=== PATIENT | male | born 1940 | race Hispanic/Latino ===

== ENCOUNTER 2017-02-12 06:14 | Day surgery (SDC) | payer MEDICARE ==
[2017-02-01 13:09] VITALS: BMI 35.9
[2017-02-12] MEDS ORDERED: Phenylephrine 10 mg/ml Inj ONE (06:36)
[2017-02-12] MEDS ORDERED: Iohexol 350mgl/ml 50 ML ONE (06:36)
[2017-02-12] MEDS ORDERED: Lidocaine 2% Inj (20ml) ONE (06:36)
[2017-02-12] MEDS ORDERED: Nitroglycerin 50mg in D5W 50 MG/250 ML BOTTLE IV ONE (06:37)
[2017-02-12] MEDS ORDERED: Iodixanol 320 MG/ML 200 ML BOTTLE IV ONE (06:37)
[2017-02-12] MEDS ORDERED: Iodixanol 320 MG/ML 100 ML BOTTLE IV ONE (06:37)
[2017-02-12 07:07] LABS: BASO # 0.04 K/mm3 (0.0-2.0); BASO % 0.7 % (0.0-3.0); EOS # 0.2 (0.0-0.7); EOS % 3.1 % (1.5-5.0); GRAN # 4.04 (1.4-6.5); GRAN % 66.1 % (50.0-68.0); HEMOGLOBIN 11.2 gm/dL (14.0-18.0); LYMPH # 1.2 (1.2-3.4); LYMPH % 19.8 % (22.0-35.0); MEAN CELL VOLUME 88.3 fL (80.0-105.0); MEAN CORPUSCULAR HEMOGLOBIN 28.4 pg (25.0-35.0); MEAN CORPUSCULAR HGB CONC 32.2 g/dl (31.0-37.0); MEAN PLATELET VOLUME 9.5 fl (7.0-11.0); MONO # 0.6 (0.1-0.6); MONO % 10.3 % (1.0-6.0); PLATELET COUNT 105 10^3/uL (120.0-450.0); RBC 3.94 10^6/uL (3.5-6.1); RED CELL DISTRIBUTION WIDTH 14.8 % (11.5-14.5); WHITE BLOOD COUNT 6.1 10^3/ul (4.5-11.0)
[2017-02-12] MEDS ORDERED: Midazolam 2 MG/2 ML VIAL ONE (07:15)
[2017-02-12 07:23] LABS: BLOOD UREA NITROGEN 25 mg/dL (7-21); CALCIUM 8.8 mg/dL (8.4-10.5); GFR AFRICAN-AMERICAN > 60; GFR NON-AFRICAN AMERICAN > 60; HDL CHOLESTEROL 36 mg/dL (29-60)
[2017-02-12 07:28] LABS: INR 1.03 (0.93-1.08); PARTIAL THROMBOPLASTIN TIME 25.2 Seconds (23.7-30.8); PROTHROMBIN TIME 11.1 Seconds (9.9-11.8)
[2017-02-12 07:33] LABS: LDL CHOLESTEROL 51 mg/dL (0-129)
[2017-02-12 09:13] VITALS: TEMP 97.5
[2017-02-12] MEDS ORDERED: Sodium Chloride 0.9% 1,000 ML IV SCH (09:15)
--- NOTE | 2017-02-12 09:37 | CARD ---
APPROVED REPORT EKG Measurement Heart [id number] <Conclusion> Siinus bradycardia Rate decreased c/w ECG 10/07/16
[2017-02-12 11:21] VITALS: RESP 16
[2017-02-12 12:45] VITALS: PULSE 55; O2SAT 98
[2017-02-12 15:05] VITALS: BP 159/61
--- NOTE | 2017-02-12 15:19 | CARD ---
APPROVED REPORT Procedure(s) performed: Left Heart Catheterization Abdomianl Aortogram and Run off upto mid thigh. HISTORY The patient is a 76 year-old male with a history of : most recent EF: 60%. (EF Method: RADIONUCLIDE), previous diagnostic cath, tobacco history() : The patient is a former smoker , previous PCI (The PCI date was 01/27/2011), hypertension , dyslipidemia , Hx of CAD, S/p PTCA RCA 01/27/2011 and PTCA of Cx and OM on 02/06/2011 was C/o Chest pain and OJEDA underwent stresstest Abnormal Apical and lateral ischemia so admitted for left Cath.. INDICATION The indication(s) include : positive stress test. CASE TECHNIQUE The patient was brought electively to the Cardiac Catheterization Laboratory in a fasting state and was prepped and draped in a sterile manner. The right femoral groin was infiltrated with 2% Lidocaine subcutaneous anesthesia. A 6 Fr x 11 cm Ya sheath was inserted into the right femoral artery without difficulty. Coronary angiography was performed using coronary diagnostic catheters. The left coronary system was accessed and visualized with a Diagnostic ,5 Fr JL 4 catheter. The right coronary system was accessed and visualized with a Diagnostic ,5 Fr JR 4 catheter. Left ventriculogram was performed in BRAVO projection. Closure device was deployed with a 6 Fr / 7 Fr MynxGrip without any complications. Vessel Analysis The patient's coronary anatomy is right dominant. The left main coronary artery is a medium size vessel with diffuse calcification noted throughout this vessel and without significant stenosis. The left main bifurcates to the left anterior descending and circumflex. The left anterior descending artery is a medium size vessel with diffuse calcification noted throughout this vessel and without significant stenosis. The first diagonal branch is a small size vessel with intimal irregularities and without significant stenosis. The second diagonal branch is a medium size vessel with diffuse calcification noted throughout this vessel and with significant stenosis. There is a 60-70% stenosis in the ostial segment. The circumflex artery is a medium size vessel with diffuse calcification noted throughout this vessel and without significant stenosis. patent stent in mid segment The first obtuse marginal branch is a medium size vessel with diffuse calcification noted throughout this vessel and without significant stenosis. The right coronary artery is a medium size vessel with diffuse calcification noted throughout this vessel and without significant stenosis. patent stent in mid segment The right posterior descending artery is a small size vessel with diffuse calcification noted throughout this vessel and without significant stenosis. Left Ventricle The left ventricle is normal in size with normal contractility. There was no cardiomyopathy. The left ventricular ejection fraction is estimated to be 60-65%. The left ventricular end diastolic pressure is 18-20 mmHg. There was no gradient across the aortic valve upon pullback. Dital Abdonial Aortogram and Run off upto mid Thigh.. No significant Flow limiting Stenosis noted in both SFA, upto middle of thigh only. Conclusion Non Obstructive CAD, Limited to D2 ostial 60-70% stenosis ( small vessel) Patent stent in RCA and Cx Preserved LV Fx. EF-60-65%. EDP-18-20 mmof Hg. Distal Aortogram with Run off upto thigh .. showed calcification in aorta and B/L SFA but no flow limiting stenosis upto middle of thigh.Patent stent in L SFA. Recommendations Smoking Cessation Cardiac Rehabilitation Referral Aggressive Medical TherapyCardiac Risk Reduction Program Weight Loss Reduction Program DIMA and PVR and if abnormal consider complete peripherasl angiogram with ALAN to assess trifurcation and distal vessel Run off. CC; Dr. Zavala.
== END 2017-02-12 14:50 | disposition home or self-care (01) ==
LOC: CATH 06:14
PROVIDERS: ATTEND Internal Medicine Cardiovascular Disease
DX: I25.10 Atherosclerotic heart disease of native coronary artery without angina pectoris (principal); E78.5 Hyperlipidemia, unspecified; I10 Essential (primary) hypertension; Z87.891 Personal history of nicotine dependence; Z95.5 Presence of coronary angioplasty implant and graft
CPT/HCPCS: 36415; 80048; 80061; 85025; 85610; 85730; 86850; 86900; 93005; 93458; 93567; 99152; C1760; C1769; C1887 ×2; C2629; J1644 ×2; J1940; J2250; J3010; J7040 ×2

== ENCOUNTER 2017-02-18 19:31 | Observation (INO) | payer MEDICARE, OTHER ==
[2017-02-18 19:32] VITALS: BMI 35.9
[2017-02-18] MEDS ORDERED: Sodium Chloride 0.9% 500 ML IV STA (19:55)
[2017-02-18 19:57] LABS: BASO # 0.02 K/mm3 (0.0-2.0); BASO % 0.2 % (0.0-3.0); EOS # 0.1 (0.0-0.7); GRAN # 8.95 (1.4-6.5); GRAN % 84.4 % (50.0-68.0); HEMOGLOBIN 11.4 gm/dL (14.0-18.0); LYMPH # 0.9 (1.2-3.4); MEAN CELL VOLUME 86.4 fL (80.0-105.0); MEAN CORPUSCULAR HEMOGLOBIN 28.2 pg (25.0-35.0); MEAN CORPUSCULAR HGB CONC 32.7 g/dl (31.0-37.0); MEAN PLATELET VOLUME 9.5 fl (7.0-11.0); MONO # 0.7 (0.1-0.6); MONO % 6.4 % (1.0-6.0); PLATELET COUNT 124 10^3/uL (120.0-450.0); RBC 4.04 10^6/uL (3.5-6.1); RED CELL DISTRIBUTION WIDTH 14.6 % (11.5-14.5); WHITE BLOOD COUNT 10.6 10^3/ul (4.5-11.0)
[2017-02-18 20:04] LABS: INR 1.05 (0.93-1.08); PARTIAL THROMBOPLASTIN TIME 26.5 Seconds (23.7-30.8); PROTHROMBIN TIME 11.3 Seconds (9.9-11.8)
[2017-02-18 20:06] LABS: ALB/GLOB RATIO 1.3 (1.1-1.8); ALT/SGPT 15 U/L (7-56); AST/SGOT 23 U/L (15-59); BLOOD UREA NITROGEN 34 mg/dL (7-21); GFR AFRICAN-AMERICAN 55; GFR NON-AFRICAN AMERICAN 45; MAGNESIUM 1.9 mg/dL (1.7-2.2)
[2017-02-18 20:18] LABS: TROPONIN I < 0.01 ng/mL
[2017-02-18 20:21] LABS: CK-MB 1.9 ng/mL (0.0-3.6)
[2017-02-18 20:46] LABS: PH,URINE 6.5 (4.7-8.0); URINE BILIRUBIN NEGATIVE (NEGATIVE); URINE BLOOD TRACE-LYSED (NEGATIVE); URINE GLUCOSE (UA) NEGATIVE (NEGATIVE); URINE LEUKOCYTE ESTERASE NEGATIVE Leu/uL (NEGATIVE); URINE NITRATE NEGATIVE (NEGATIVE); URINE PROTEIN NEGATIVE mg/dL (<30 mg/dL); URINE UROBILINOGEN 0.2 E.U./dL (<1 E.U./dL)
[2017-02-18 20:54] LABS: URINE APPEARANCE CLEAR (CLEAR); URINE COLOR YELLOW (YELLOW)
--- NOTE | 2017-02-18 21:09 | ED PDOC ---
Arrival/HPI - General Chief Complaint: Chest Pain Time Seen by Provider: 02/18/17 19:33 Historian: Patient - History of Present Illness Narrative History of Present Illness (Text): 02/18/17 19:40 Arthur Dong is a 76 year old male, whose past medical history includes Parkinson's disease and COPD, who presents to the Emergency department complaining of chest pain with some shortness of breath for 1 hour prior to arrival. Patient recently underwent a cardiac catheterization 6 days ago, which was normal. Patient denies any fever, chills, nausea, vomiting, diarrhea, urinary symptoms, back pain, neck pain, headache, dizziness, or any other complaints. PMD: Dr. Zavala Symptom Onset: Gradual Symptom Course: Unchanged Activities at Onset: Rest, Light Context: Home Past Medical History - Provider Review Nursing Documentation Reviewed: Yes - Infectious Disease Hx of Infectious Diseases: None - Tetanus Immunization Tetanus Immunization: Unknown - Cardiac Hx Cardiac Disorders: Yes Hx Hypertension: Yes - Pulmonary Hx Respiratory Disorders: Yes Hx Bronchitis: Yes Hx Chronic Obstructive Pulmonary Disease (COPD): Yes (Borderline COPD) - Neurological Hx Paralysis: No - HEENT Hx HEENT Disorder: No - Renal Hx Renal Disorder: No - Endocrine/Metabolic Hx Endocrine Disorders: No - Hematological/Oncological Hx Blood Transfusions: No - Integumentary Hx Dermatological Disorder: No - Musculoskeletal/Rheumatological Hx Musculoskeletal Disorders: Yes (BACK PAIN) - Gastrointestinal Hx Gastrointestinal Disorders: No - Genitourinary/Gynecological Hx Genitourinary Disorders: No Hx Hematuria: No Hx Incontinence: No Hx Prostate Problems: No Hx Sexually Transmitted Diseases: No - Psychiatric Hx Emotional Abuse: No Hx Physical Abuse: No Hx Substance Use: No - Past Surgical History Past Surgical History: No Previous - Surgical History Hx Cardiac Catheterization: Yes Hx Coronary Stent: Yes Other/Comment: 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 1970 S/P Left foot surgery. 2008 s/p Hernia repair. 2009 S/P Left leg stent. S/P Cardiac stent. - Anesthesia Hx Anesthesia Reactions: No Hx Malignant Hyperthermia: No - Suicidal Assessment Feels Threatened In Home Enviroment: No Family/Social History - Physician Review Nursing Documentation Reviewed: Yes Family/Social History: Unknown Family HX Smoking Status: Former Smoker Hx Alcohol Use: No Hx Substance Use: No Hx Substance Use Treatment: No Allergies/Home Meds Allergies/Adverse Reactions: Allergies No Known Allergies Allergy (Verified 02/18/17 19:41) Home Medications: Home Meds Medication Instructions Recorded Confirmed Levocetirizine Dihydrochloride 5 mg PO DAILY 10/07/16 02/18/17 [Xyzal] Simvastatin 40 mg PO DAILY 10/07/16 02/18/17 Losartan Potassium 100 mg PO QPM 02/01/17 02/18/17 Carbidopa/Levodopa 1 each PO QID 02/05/17 02/18/17 [Carbidopa-Levodopa 25-100 Tab] Fluticasone Propionate [Flonase 100 mcg VINAY DAILY 02/18/17 02/18/17 Allergy Relief] Review of Systems - Physician Review All systems were reviewed & negative as marked: Yes - Review of Systems Constitutional: Normal. absent: Fevers Eyes: Normal ENT: Normal Respiratory: SOB. absent: Cough Cardiovascular: Chest Pain Gastrointestinal: Normal. absent: Abdominal Pain, Diarrhea, Nausea, Vomiting Genitourinary Male: Normal. absent: Frequency, Hematuria, Urinary Output Changes Musculoskeletal: Normal. absent: Back Pain, Neck Pain Skin: Normal. absent: Rash Neurological: Normal. absent: Headache, Dizziness Endocrine: Normal Hemo/Lymphatic: Normal Psychiatric: Normal Physical Exam Vital Signs Reviewed: Yes Vital Signs Temp Pulse Resp BP Pulse Ox 02/19/17 00:23 79 16 142/94 H 100 02/18/17 22:38 97.7 F 85 18 141/65 100 02/18/17 21:45 81 18 144/66 97 02/18/17 20:40 85 18 130/51 L 99 02/18/17 20:15 87 18 120/62 98 02/18/17 19:39 97.7 F 97 H 18 98/51 L 95 Temperature: Afebrile Blood Pressure: Normal Pulse: Regular Respiratory Rate: Normal Appearance: Positive for: Well-Appearing, Non-Toxic, Comfortable Pain Distress: None Mental Status: Positive for: Alert and Oriented X 3 - Systems Exam Head: Present: Atraumatic, Normocephalic Pupils: Present: PERRL Extroacular Muscles: Present: EOMI Conjunctiva: Present: Normal Mouth: Present: Moist Mucous Membranes Neck: Present: Normal Range of Motion Respiratory/Chest: Present: Clear to Auscultation, Good Air Exchange. No: Respiratory Distress, Accessory Muscle Use Cardiovascular: Present: Regular Rate and Rhythm, Normal S1, S2. No: Murmurs Abdomen: Present: Normal Bowel Sounds. No: Tenderness, Distention, Peritoneal Signs Back: Present: Normal Inspection Upper Extremity: Present: Normal Inspection. No: Cyanosis, Edema Lower Extremity: Present: Normal Inspection. No: Edema Neurological: Present: GCS=15, CN II-XII Intact, Speech Normal Skin: Present: Warm, Dry, Normal Color. No: Rashes Psychiatric: Present: Alert, Oriented x 3, Normal Insight, Normal Concentration Medical Decision Making ED Course and Treatment: 02/18/17 19:40 Impression: 76 year old male complaining of chest pain with some shortness of breath. Differential Diagnosis included but are not limited to: pneumonia vs. COPD vs. ACS vs. PE Plan: -- EKG -- CXR -- Labs, cardiac enzymes, D-dimer -- IV fluids -- Reassess and disposition Prior Visits: Notes and results from previous visits were reviewed. On 10/07/2016, pt was seen in the Emergency department for generalized weakness , vomiting, and diarrhea. Pt was admitted to the hospital for further evaluation. Progress Notes: Reviewed EKG, NSR at [address]-segment elevations or depressions, no T-wave inversions, normal intervals. 02/18/17 20:49 Reviewed Chest X-ray, shows no acute processes. 02/18/17 20:54 Reviewed labs, D-dimer: 0.56, BUN:34, and creatinine: 1.5. VQ scan ordered. 02/19/17 23:[address] Head, shows: Brain: Mild atrophy. No intracranial hemorrhage. No mass. No definite edema. Ventricles: No hydrocephalus. Bones/joints: No acute fracture. Soft tissues: Unremarkable. Vasculature: Mild atherosclerotic disease of intracranial arteries. Sinuses: Scattered minimal mucosal thickening. Mastoid air cells: No mastoid effusion. Orbits: Unremarkable as visualized. IMPRESSION: 1. No definite acute intracranial abnormality. Acute infarction may be CT occult within first 24 hours. If a focal deficit persists, consider followup CT or MRI for further evaluation. 2. Incidental/non-acute findings are described above. 02/19/2017 23:[address] Zavala, who is aware and agrees with plan. Accepts pt in to her service. Pt will go to Telemetry observation for chest pain. VQ scan pending. Pt is no acute distress. Discussed results and hospital observation plan with pt , who is aware and verbalizes understanding. 02/19/17 00:37 Reviewed VQ Lung Perfusion, shows: Ventilation: Heterogeneous uptake. No moderate or large ventilation defects. Perfusion: No moderate or large perfusion defects. IMPRESSION: Low probability for pulmonary embolism. - Lab Interpretations Lab Results: 02/18/17 19:30 02/18/17 19:30 Lab Results 02/18/17 20:30: Urine Color Yellow, Urine Appearance Clear, Urine pH 6.5, Ur Specific [place] 1.010, Urine Protein Negative, Urine Glucose (UA) Negative, Urine Ketones Negative, Urine Blood Trace-lysed H, Urine Nitrate Negative, Urine Bilirubin Negative, Urine Urobilinogen 0.2, Ur Leukocyte Esterase Negative , Urine RBC 0 - 2, Urine WBC 1 - 3, Ur Epithelial Cells 1 - 3, Urine Bacteria Few 02/18/17 19:30: PT 11.3, INR 1.05, APTT 26.5 02/18/17 19:30: Sodium 136, Potassium 4.7, Chloride 100, Carbon Dioxide 24, Anion Gap 17, BUN 34 H, Creatinine 1.5 H, Est GFR ( Amer) 55, Est GFR ( Non-Af Amer) 45, Random Glucose 208 H, Calcium 9.0, Magnesium 1.9, Total Bilirubin 0.7, AST 23, ALT 15, Alkaline Phosphatase 75, Lactate Dehydrogenase 462, Total Creatine Kinase 354 H, CK-MB (CK-2) 1.9, CK-MB (CK-2) % Cancelled, Troponin I < 0.01, Total Protein 7.1, Albumin 4.0, Globulin 3.0, Albumin/ Globulin Ratio 1.3 02/18/17 19:30: WBC 10.6 D, RBC 4.04, Hgb 11.4 L, Hct 34.9 L, MCV 86.4, MCH 28.2, MCHC 32.7, RDW 14.6 H, Plt Count 124, MPV 9.5, Gran % 84.4 H, Lymph % ( Auto) 8.0 L, [place] % (Auto) 6.4 H, Eos % (Auto) 1.0 L, Baso % (Auto) 0.2, Gran # 8.95 H, Lymph # 0.9 L, [place] # 0.7 H, Eos # 0.1, Baso # 0.02 02/18/17 19:00: D-Dimer, Quantitative 0.56 H I have reviewed the lab results: Yes - RAD Interpretation Radiology Orders: 02/18/17 19:41 CHEST PORTABLE [RAD] Stat 02/18/17 20:54 LUNG PERF & VENT SCAN [NM] Stat 02/18/17 21:37 HEAD W/O CONTRAST [CT] Stat Pole Shaver Helper: ED Physician, Radiologist - EKG Interpretation Interpreted by ED Physician: Yes Comparison: Com.w/previous EKG - Medication Orders Current Medication Orders: Acetaminophen (Tylenol 325mg Tab) 650 mg PO Q4H PRN PRN Reason: Pain, Mild (1-3) Alprazolam (Xanax) 0.25 mg PO BID PRN; Protocol PRN Reason: Anxiety Stop: 02/26/17 09:17 Aspirin (Ecotrin) 81 mg PO DAILY [facility] Last Admin: 02/19/17 10:47 Dose: 81 mg Atorvastatin Calcium (Lipitor) 20 mg PO DIN [facility] Last Admin: 02/19/17 18:36 Dose: 20 mg Carbidopa/Levodopa (Sinemet) 1 tab PO QID [facility] Last Admin: 02/19/17 21:51 Dose: 1 tab Clopidogrel Bisulfate (Plavix) 75 mg PO DAILY [facility] Last Admin: 02/19/17 10:47 Dose: 75 mg Furosemide (Lasix) 40 mg PO DAILY [facility] Last Admin: 02/19/17 10:47 Dose: 40 mg Sodium Chloride (Sodium Chloride 0.9%) 1,000 mls @ 30 mls/hr IV .Q24H [facility] Last Admin: 02/19/17 15:48 Dose: 30 mls/hr Losartan Potassium (Cozaar) 100 mg PO QPM [facility] Last Admin: 02/19/17 18:34 Dose: 100 mg Metoprolol Tartrate (Lopressor) 25 mg PO BID [facility] Last Admin: 02/19/17 18:34 Dose: 25 mg Discontinued Medications Sodium Chloride (Sodium Chloride 0.9%) 500 mls @ 999 mls/hr IV .Q31M STA Stop: 02/18/17 20:25 Last Admin: 02/18/17 20:11 Dose: 999 mls/hr Sodium Chloride (Sodium Chloride 0.9%) 1,000 mls @ 75 mls/hr IV .[id number] [facility] Stop: 02/19/17 23:59 Last Admin: 02/19/17 18:40 Dose: 75 mls/hr Non-Formulary Medication (Simvastatin [Simvastatin]) 40 mg PO DAILY [facility] - Scribe Statement The provider has reviewed the documentation as recorded by the Jaclynibe Susan Watt All medical record entries made by the Jaclynibcelso were at my direction and personally dictated by me. I have reviewed the chart and agree that the record accurately reflects my personal performance of the history, physical exam, medical decision making, and the department course for this patient. I have also personally directed, reviewed, and agree with the discharge instructions and disposition. Disposition/Present on Arrival - Present on Arrival Any Indicators Present on Arrival: No History of DVT/PE: No History of Uncontrolled Diabetes: No Urinary Catheter: No History of Decub. Ulcer: No History Surgical Site Infection Following: None - Disposition Have Diagnosis and Disposition been Completed?: Yes Diagnosis: Chest pain Disposition: HOSPITALIZED Disposition Time: 23:35 Patient Problems: Current Active Problems Problem Status Onset Chest pain Acute Condition: GOOD
[2017-02-18 21:22] LABS: URINE BACTERIA FEW (NEG); URINE RBC 0 - 2 /hpf (0-2)
--- NOTE | 2017-02-18 23:03 | CT ---
EXAM: CT Head Without Intravenous Contrast CLINICAL HISTORY: 76 years old, male; Signs and symptoms; Numbness / parasthesia; Bilateral TECHNIQUE: Axial computed tomography images of the head/brain without intravenous contrast. This CT exam was performed using one or more of the following dose reduction techniques: automated exposure control, adjustment of the mA and/or kV according to patient size, and/or use of iterative reconstruction technique. COMPARISON: CT - HEAD W/O CONTRAST 10/07/2016 10:44:17 AM FINDINGS: Brain: Mild atrophy. No intracranial hemorrhage. No mass. No definite edema. Ventricles: No hydrocephalus. Bones/joints: No acute fracture. Soft tissues: Unremarkable. Vasculature: Mild atherosclerotic disease of intracranial arteries. Sinuses: Scattered minimal mucosal thickening. Mastoid air cells: No mastoid effusion. Orbits: Unremarkable as visualized. IMPRESSION: 1. No definite acute intracranial abnormality. Acute infarction may be CT occult within first 24 hours. If a focal deficit persists, consider followup CT or MRI for further evaluation. 2. Incidental/non-acute findings are described above.
--- NOTE | 2017-02-19 00:38 | NM ---
EXAM: NM Lung Perfusion and Ventilation Scan CLINICAL HISTORY: 76 years old, male; Pain; Chest pain; Type not specified; Patient HX: Cp. TECHNIQUE: Nuclear Medicine ventilation and perfusion images of the lungs were obtained in multiple projections following radiopharmaceutical inhalation/injection. COMPARISON: No relevant prior studies available. FINDINGS: Ventilation: Heterogeneous uptake. No moderate or large ventilation defects. Perfusion: No moderate or large perfusion defects. IMPRESSION: Low probability for pulmonary embolism.
--- NOTE | 2017-02-19 08:15 | RAD ---
HISTORY: cp COMPARISON: Comparison chest 10/07/16 FINDINGS: LUNGS: Poor inspiration with low lung volumes, crowded bronchovascular markings and mild bibasilar atelectasis. PLEURA: No significant pleural effusion identified, no pneumothorax apparent. CARDIOVASCULAR: Cardiomegaly . . Aorta is ectatic and uncoiled. OSSEOUS STRUCTURES: No significant abnormalities. VISUALIZED UPPER ABDOMEN: Normal. OTHER FINDINGS: None. IMPRESSION: Poor inspiration with low lung volumes, crowded bronchovascular markings and mild bibasilar atelectasis.
[2017-02-19 09:23] LABS: HEMOGLOBIN 11.6 gm/dL (14.0-18.0); MEAN CELL VOLUME 86.8 fL (80.0-105.0); MEAN CORPUSCULAR HEMOGLOBIN 28.4 pg (25.0-35.0); MEAN CORPUSCULAR HGB CONC 32.8 g/dl (31.0-37.0); MEAN PLATELET VOLUME 9.3 fl (7.0-11.0); RBC 4.08 10^6/uL (3.5-6.1); RED CELL DISTRIBUTION WIDTH 14.4 % (11.5-14.5); WHITE BLOOD COUNT 7.6 10^3/ul (4.5-11.0)
[2017-02-19 09:38] LABS: ALB/GLOB RATIO 1.2 (1.1-1.8); ALBUMIN 3.8 g/dL (3.0-4.8); ALT/SGPT 21 U/L (7-56); AST/SGOT 18 U/L (15-59); BLOOD UREA NITROGEN 27 mg/dL (7-21); CALCIUM 8.8 mg/dL (8.4-10.5); GFR AFRICAN-AMERICAN > 60; GFR NON-AFRICAN AMERICAN > 60; MAGNESIUM 2.1 mg/dL (1.7-2.2)
[2017-02-19 09:51] LABS: TROPONIN I 0.01 ng/mL
--- NOTE | 2017-02-19 10:01 | CARD ---
APPROVED REPORT EKG Measurement Heart [id number] <Conclusion> Normal sinus rhythm Normal ECG C/W ECG 02/12/17: the rate has increased
[2017-02-19] MEDS ORDERED: Sodium Chloride 0.9% 1,000 ML IV SCH ×2 (15:00→16:00)
--- NOTE | 2017-02-19 15:57 | CP.PCM.CON ---
History of Present Illness - History of Present Illness History of Present Illness: reason for consult: chest pain, Dizyness &6 year old male with p Mhx of CAD S/p PTCA 01/2011 RCA and then stage PTCA of Cx after two weeks , HTN, PAD, parkinson's diz. Hx of cath one week agog non obst CAD admitted with knot in chest and dizzyness and SOB. no chest pain now. PMHx CAD as above recent Cardiac W/u cath on 02/12/2017 .... Non Obst Cad medical treatment. Review of Systems - EENT Eyes: As Per HPI Ears: As Per HPI Nose/Mouth/Throat: As Per HPI - Cardiovascular Cardiovascular: As Per HPI - Respiratory Respiratory: As Per HPI - Gastrointestinal Gastrointestinal: As Per HPI Past Patient History - Infectious Disease Hx of Infectious Diseases: None - Tetanus Immunizations Tetanus Immunization: Unknown - Past Social History Smoking Status: Former Smoker - CARDIAC Hx Cardiac Disorders: Yes Hx Hypercholesterolemia: Yes Hx Hypertension: Yes Hx Peripheral Edema: Yes Hx Peripheral Vascular Disease: Yes - PULMONARY Hx Respiratory Disorders: Yes Hx Bronchitis: Yes Hx Chronic Obstructive Pulmonary Disease (COPD): Yes (borderline) Hx Pneumonia: Yes - NEUROLOGICAL Hx Dizziness: Yes Hx Parkinson's Disease: Yes - HEENT Hx HEENT Problems: No - RENAL Hx Chronic Kidney Disease: No - ENDOCRINE/METABOLIC Hx Endocrine Disorders: No - HEMATOLOGICAL/ONCOLOGICAL Hx Blood Transfusions: No - INTEGUMENTARY Hx Dermatological Problems: No - MUSCULOSKELETAL/RHEUMATOLOGICAL Hx Back Pain: Yes Hx Falls: Yes Hx Unsteady Gait: Yes - GASTROINTESTINAL Hx Gastrointestinal Disorders: No - GENITOURINARY/GYNECOLOGICAL Hx Genitourinary Disorders: No Hx Hematuria: No Hx Incontinence: No Hx Prostate Problems: No Hx Sexually Transmitted Disorders: No - PSYCHIATRIC Hx Anxiety: Yes Hx Depression: Yes Hx Substance Use: No - SURGICAL HISTORY Hx Amputation: Yes (finger tip) Hx Cardiac Catheterization: Yes Hx Coronary Stent: Yes - ANESTHESIA Hx Anesthesia Reactions: No Hx Malignant Hyperthermia: No Meds Allergies/Adverse Reactions: Allergies Allergy/AdvReac Type Severity Reaction Status Date / Time No Known Allergies Allergy Verified 02/18/17 19:41 - Medications Medications: Current Medications Acetaminophen (Tylenol 325mg Tab) 650 mg PO Q4H PRN PRN Reason: Pain, Mild (1-3) Alprazolam (Xanax) 0.25 mg PO BID PRN; Protocol PRN Reason: Anxiety Stop: 02/26/17 09:17 Aspirin (Ecotrin) 81 mg PO DAILY [facility] Last Admin: 02/19/17 10:47 Dose: 81 mg Atorvastatin Calcium (Lipitor) 20 mg PO DIN [facility] Carbidopa/Levodopa (Sinemet) 1 tab PO QID [facility] Last Admin: 02/19/17 10:47 Dose: 1 tab Clopidogrel Bisulfate (Plavix) 75 mg PO DAILY [facility] Last Admin: 02/19/17 10:47 Dose: 75 mg Furosemide (Lasix) 40 mg PO DAILY [facility] Last Admin: 02/19/17 10:47 Dose: 40 mg Sodium Chloride (Sodium Chloride 0.9%) 1,000 mls @ 30 mls/hr IV .Q24H [facility] Losartan Potassium (Cozaar) 100 mg PO QPM [facility] Metoprolol Tartrate (Lopressor) 25 mg PO BID [facility] Last Admin: 02/19/17 10:46 Dose: 25 mg Physical Exam - Constitutional Appears: Non-toxic - Head Exam Head Exam: ATRAUMATIC - Eye Exam Eye Exam: Conjunctival injection - ENT Exam ENT Exam: Mucous Membranes Dry - Neck Exam Neck exam: Positive for: Full Rom - Respiratory Exam Respiratory Exam: Clear to Auscultation Bilateral, NORMAL BREATHING PATTERN - Cardiovascular Exam Cardiovascular Exam: REGULAR RHYTHM - GI/Abdominal Exam GI & Abdominal Exam: Normal Bowel Sounds, Soft - Rectal Exam Rectal Exam: Deferred - Exam External exam: NORMAL EXTERNAL EXAM Results - Vital Signs Recent Vital Signs: Last Vital Signs Temp 98 F 02/19/17 12:00 Pulse 62 02/19/17 14:00 Resp 18 02/19/17 12:00 BP 94/57 L 02/19/17 12:00 Pulse Ox 92 L 02/19/17 06:00 - Labs Result Diagrams: 02/19/17 09:10 02/19/17 09:10 Labs: Laboratory Results - last 24 hr 02/19/17 02/19/17 02/19/17 09:10 09:10 09:10 WBC 7.6 D RBC 4.08 Hgb 11.6 L Hct 35.4 L MCV 86.8 MCH 28.4 MCHC 32.8 RDW 14.4 Plt Count 110 L MPV 9.3 ESR 45 H Sodium 139 Potassium 4.6 Chloride 104 Carbon Dioxide 26 Anion Gap 14 BUN 27 H Creatinine 1.0 Est GFR ( Amer) > 60 Est GFR (Non-Af Amer) > 60 Random Glucose 153 H Calcium 8.8 Magnesium 2.1 Total Bilirubin 0.7 AST 18 ALT 21 Alkaline Phosphatase 82 Troponin I 0.01 Total Protein 7.0 Albumin 3.8 Globulin 3.2 Albumin/Globulin Ratio 1.2 TSH 3rd Generation 2.09 Assessment & Plan - Assessment and Plan (Free Text) Assessment: 76 year old male with HX of CopD. parkinsons DiHx of CAD S/p PTCA RCA 2010 and stage PTCA 02/06/2011 Recent abnormal stress test positive s/p cath ...02/12/2017 ...Non Obst CAD COPD' HTN, PAD B/l angiogram upto middle thigh no significant PAD Admittec with SOB, Knot in chest and dizzyness So far no evidence of [place] Plan: F/u CPK am troponin ..if negative will Dc tele check for orthosatic bp Changes Dc planning - Date & Time Date: 02/19/17 Time: 08:30
[2017-02-20 07:46] LABS: HDL CHOLESTEROL 43 mg/dL (29-60); LDL CHOLESTEROL 59 mg/dL (0-129)
[2017-02-20 08:15] VITALS: RESP 20; TEMP 97.9; O2SAT 97
[2017-02-20 09:27] LABS: HEMOGLOBIN 12.4 gm/dL (14.0-18.0); MEAN CELL VOLUME 87.6 fL (80.0-105.0); MEAN CORPUSCULAR HEMOGLOBIN 28.9 pg (25.0-35.0); MEAN PLATELET VOLUME 9.8 fl (7.0-11.0); RBC 4.29 10^6/uL (3.5-6.1); RED CELL DISTRIBUTION WIDTH 14.6 % (11.5-14.5); WHITE BLOOD COUNT 7.4 10^3/ul (4.5-11.0)
[2017-02-20 09:30] LABS: BLOOD UREA NITROGEN 27 mg/dL (7-21); CALCIUM 9.3 mg/dL (8.4-10.5); GFR AFRICAN-AMERICAN > 60; GFR NON-AFRICAN AMERICAN > 60
[2017-02-20 09:53] VITALS: BP 106/58; PULSE 67
--- NOTE | 2017-02-20 11:38 | CP.PCM.PN ---
Subjective - Date & Time of Evaluation Date of Evaluation: 02/20/17 Time of Evaluation: 09:45 - Subjective Subjective: feels much better no Chest pain, dizzyness improved. walking by holding IV Post Objective - Vital Signs/Intake and Output Vital Signs (last 24 hours): Temp Pulse Resp BP Pulse Ox 97.9 F 67 20 106/58 L 97 02/20/17 07:30 02/20/17 09:49 02/20/17 07:30 02/20/17 09:49 02/20/17 07:30 Intake and Output: 02/20/17 02/20/17 06:59 18:59 Intake Total 420 Balance 420 - Medications Medications: Current Medications Acetaminophen (Tylenol 325mg Tab) 650 mg PO Q4H PRN PRN Reason: Pain, Mild (1-3) Alprazolam (Xanax) 0.25 mg PO BID PRN; Protocol PRN Reason: Anxiety Stop: 02/26/17 09:17 Aspirin (Ecotrin) 81 mg PO DAILY [facility] Last Admin: 02/20/17 09:49 Dose: 81 mg Atorvastatin Calcium (Lipitor) 20 mg PO DIN [facility] Last Admin: 02/19/17 18:36 Dose: 20 mg Carbidopa/Levodopa (Sinemet) 1 tab PO QID [facility] Last Admin: 02/20/17 09:48 Dose: 1 tab Clopidogrel Bisulfate (Plavix) 75 mg PO DAILY [facility] Last Admin: 02/20/17 09:49 Dose: 75 mg Furosemide (Lasix) 40 mg PO DAILY [facility] Last Admin: 02/20/17 09:48 Dose: 40 mg Sodium Chloride (Sodium Chloride 0.9%) 1,000 mls @ 30 mls/hr IV .Q24H [facility] Last Admin: 02/19/17 15:48 Dose: 30 mls/hr Losartan Potassium (Cozaar) 100 mg PO QPM [facility] Last Admin: 02/19/17 18:34 Dose: 100 mg Metoprolol Tartrate (Lopressor) 25 mg PO BID [facility] Last Admin: 02/20/17 09:49 Dose: 25 mg - Labs Labs: 02/20/17 06:00 02/20/17 06:00 PT 11.3 Seconds (9.9-11.8) 02/18/17 19:30 INR 1.05 (0.93-1.08) 02/18/17 19:30 APTT 26.5 Seconds (23.7-30.8) 02/18/17 19:30 - Constitutional Appears: Well, Non-toxic - Head Exam Head Exam: ATRAUMATIC - Eye Exam Eye Exam: Conjunctival injection - ENT Exam ENT Exam: Mucous Membranes Dry, Normal Exam - Respiratory Exam Respiratory Exam: Clear to Ausculation Bilateral - Cardiovascular Exam Cardiovascular Exam: REGULAR RHYTHM - GI/Abdominal Exam GI & Abdominal Exam: Soft - Exam External exam: NORMAL EXTERNAL EXAM Assessment and Plan - Assessment and Plan (Free Text) Assessment: dizzyness, /dehydration chest apin, no evidence of ACS Hx of CAD S/p PTCA in past Hx of cath one week ago [patent PTCA sites PADF COPD parkinson's diz Plan: Hydration reume meds possible dc in Am. f/u Lab in am
== END 2017-02-20 15:35 | disposition home or self-care (01) ==
LOC: ED 19:31 → ERH 02-19 01:13 → 2RNO 02-19 02:45 → 5RNO 02-19 21:29
PROVIDERS: ADMIT Internal Medicine; ATTEND Internal Medicine
DX: R07.9 Chest pain, unspecified (principal); R42 Dizziness and giddiness; E86.0 Dehydration; J44.9 Chronic obstructive pulmonary disease, unspecified; G20 Parkinson's disease; E78.00 Pure hypercholesterolemia, unspecified; I25.10 Atherosclerotic heart disease of native coronary artery without angina pectoris; I73.9 Peripheral vascular disease, unspecified; I10 Essential (primary) hypertension; Z87.01 Personal history of pneumonia (recurrent); Z95.5 Presence of coronary angioplasty implant and graft
CPT/HCPCS: 36415; 70450; 71010; 78582; 80048; 80053; 80061; 81001; 82550; 82553; 83036; 83615; 83735; 84443; 84484; 85025; 85027; 85378; 85610; 85651; 85730; 86140; 87070; 93005; 96360; 99285; A9540; G0378; J7040

== ENCOUNTER 2017-04-05 22:28 | Observation (INO) | payer MEDICARE, MEDICAID ==
[2017-04-05 22:29] VITALS: BMI 35.9
[2017-04-05 22:48] VITALS: O2SAT 97
--- NOTE | 2017-04-05 23:26 | ED PDOC ---
Arrival/HPI - General Time Seen by Provider: 04/05/17 22:50 Historian: Patient - History of Present Illness Narrative History of Present Illness (Text): 04/05/17 23:23 76 year old male, whose past medical history includes hypertension, CAD s/p PTCA , COPD, and Parkinson's disease, presents to the emergency department by EMS complaining of dizziness. Patient was hypotensive on arrival by EMS. Patient states that he was at home laying in bed and when he got up he became dizzy and fell down. He reports that he landed on his hands and did not have LOC. Denies head trauma. He reports that he felt "chills" all day. He denies chest pain, shortness of breath, nausea, vomiting, diarrhea, urinary symptoms, back pain, neck pain, headache. PMD: Dr. Zavala Time/Duration: Prior to Arrival Symptom Onset: Sudden Symptom Course: Unchanged Activities at Onset: Light Context: Home Past Medical History - Provider Review Nursing Documentation Reviewed: Yes - Infectious Disease Hx of Infectious Diseases: None - Tetanus Immunization Tetanus Immunization: Unknown - Cardiac Hx Cardiac Disorders: Yes Hx Hypertension: Yes - Pulmonary Hx Respiratory Disorders: Yes Hx Bronchitis: Yes Hx Chronic Obstructive Pulmonary Disease (COPD): Yes (Borderline COPD) - Neurological Hx Paralysis: No - HEENT Hx HEENT Disorder: No - Renal Hx Renal Disorder: No - Endocrine/Metabolic Hx Endocrine Disorders: No - Hematological/Oncological Hx Blood Transfusions: No - Integumentary Hx Dermatological Disorder: No - Musculoskeletal/Rheumatological Hx Musculoskeletal Disorders: Yes (BACK PAIN) - Gastrointestinal Hx Gastrointestinal Disorders: No - Genitourinary/Gynecological Hx Genitourinary Disorders: No Hx Hematuria: No Hx Incontinence: No Hx Prostate Problems: No Hx Sexually Transmitted Diseases: No - Psychiatric Hx Emotional Abuse: No Hx Physical Abuse: No Hx Substance Use: No - Past Surgical History Past Surgical History: No Previous - Surgical History Hx Cardiac Catheterization: Yes Hx Coronary Stent: Yes Other/Comment: 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 1969 S/P Left foot surgery. 2008 s/p Hernia repair. 2008 S/P Left leg stent. S/P Cardiac stent. - Anesthesia Hx Anesthesia Reactions: No Hx Malignant Hyperthermia: No - Suicidal Assessment Feels Threatened In Home Enviroment: No Family/Social History - Physician Review Nursing Documentation Reviewed: Yes Family/Social History: No Known Family HX Smoking Status: Former Smoker Hx Alcohol Use: No Hx Substance Use: No Hx Substance Use Treatment: No Allergies/Home Meds Allergies/Adverse Reactions: Allergies No Known Allergies Allergy (Verified 02/18/17 19:41) Home Medications: Home Meds Medication Instructions Recorded Confirmed Levocetirizine Dihydrochloride 5 mg PO DAILY 10/07/16 02/18/17 [Xyzal] Simvastatin 40 mg PO DAILY 10/07/16 02/18/17 Losartan Potassium 100 mg PO QPM 02/01/17 02/18/17 Carbidopa/Levodopa 1 each PO QID 02/05/17 02/18/17 [Carbidopa-Levodopa 25-100 Tab] Fluticasone Propionate [Flonase 100 mcg VINAY DAILY 02/18/17 02/18/17 Allergy Relief] Review of Systems - Physician Review All systems were reviewed & negative as marked: Yes - Review of Systems Constitutional: Fevers (subjective and chills), Other (near syncope) Eyes: absent: Vision Changes Respiratory: absent: SOB, Cough Cardiovascular: absent: Chest Pain, Palpitations, Edema Gastrointestinal: absent: Abdominal Pain, Constipation, Diarrhea, Nausea, Vomiting Genitourinary Male: absent: Dysuria, Frequency, Hematuria Musculoskeletal: absent: Back Pain, Neck Pain Neurological: Dizziness. absent: Headache, Other (Loss of consciousness) Physical Exam Vital Signs Reviewed: Yes Vital Signs Temp Pulse Resp BP Pulse Ox 04/05/17 22:48 99 F 58 L 20 124/60 97 Temperature: Afebrile Blood Pressure: Normal Pulse: Regular Respiratory Rate: Normal Appearance: Positive for: Well-Appearing Pain Distress: None Mental Status: Positive for: Alert and Oriented X 3 - Systems Exam Head: Present: Atraumatic, Normocephalic Pupils: Present: PERRL Extroacular Muscles: Present: EOMI Conjunctiva: Present: Normal Mouth: Present: Moist Mucous Membranes Neck: Present: Normal Range of Motion Respiratory/Chest: Present: Clear to Auscultation, Good Air Exchange. No: Respiratory Distress, Accessory Muscle Use Cardiovascular: Present: Regular Rate and Rhythm, Normal S1, S2. No: Murmurs Abdomen: Present: Normal Bowel Sounds. No: Tenderness, Distention, Peritoneal Signs Upper Extremity: Present: Normal Inspection. No: Cyanosis, Edema Lower Extremity: Present: Normal Inspection. No: Edema Neurological: Present: GCS=15, CN II-XII Intact, Speech Normal, Motor Func Grossly Intact, Normal Sensory Function Skin: Present: Warm, Dry, Normal Color. No: Rashes Psychiatric: Present: Alert, Oriented x 3, Normal Insight, Normal Concentration Medical Decision Making ED Course and Treatment: 04/05/17 23:23 Impression: 76 year old male presents complaining of dizziness that began today and episode of near syncope. Plan: -- EKG -- Labs -- Urinalysis -- Reassess and disposition Prior Visits: Notes and results from previous visits were reviewed. On 02/18/2017 patient came in complaining of chest pain with shortness of breathe. Progress Notes: EKG shows NSR at 67 BPM with normal intervals and no ST/T changes. 04/06/17 00:07 Labs grossly normal. Trop x 1 negative. Patient reports persistent dizziness when ambulating. IVF infusing. Spoke to Dr. Felix and [facility] hydration for dehydration. - Lab Interpretations Lab Results: 04/05/17 23:25 04/05/17 23:25 Lab Results 04/05/17 23:25: Sodium 140, Potassium 4.2, Chloride 105, Carbon Dioxide 24, Anion Gap 15, BUN 29 H, Creatinine 1.1, Est GFR ( Amer) > 60, Est GFR ( Non-Af Amer) > 60, Random Glucose 118 H, Calcium 8.7, Phosphorus 3.8, Magnesium 1.9, Total Bilirubin 0.3, AST 18, ALT 23, Alkaline Phosphatase 84, Total Creatine Kinase 73, Troponin I < 0.01, Total Protein 6.9, Albumin 4.0, Globulin 2.8, Albumin/Globulin Ratio 1.4 04/05/17 23:25: PT 11.3, INR 1.05, APTT 25.9 04/05/17 23:25: WBC 9.1 D, RBC 3.87, Hgb 11.2 L, Hct 33.6 L, MCV 86.8, MCH 28.9 , MCHC 33.3, RDW 15.3 H, Plt Count 127, MPV 9.7, Gran % 72.8 H, Lymph % (Auto) 14.1 L, [place] % (Auto) 10.4 H, Eos % (Auto) 2.5, Baso % (Auto) 0.2, Gran # 6.64 H , Lymph # 1.3, [place] # 1.0 H, Eos # 0.2, Baso # 0.02 I have reviewed the lab results: Yes - RAD Interpretation Radiology Orders: 04/05/17 22:56 CHEST PORTABLE [RAD] Stat - EKG Interpretation Interpreted by ED Physician: Yes Type: 12 lead EKG - Medication Orders Current Medication Orders: Sodium Chloride (Sodium Chloride 0.9%) 1,000 mls @ 999 mls/hr IV .Q1H1M STA Stop: 04/06/17 01:11 Last Admin: 04/06/17 00:25 Dose: 999 mls/hr Sodium Chloride (Sodium Chloride 0.9%) 1,000 mls @ 100 mls/hr IV .Q10H [facility] - Scribe Statement The provider has reviewed the documentation as recorded by the Scribe Maria D Vasquez All medical record entries made by the Scribe were at my direction and personally dictated by me. I have reviewed the chart and agree that the record accurately reflects my personal performance of the history, physical exam, medical decision making, and the department course for this patient. I have also personally directed, reviewed, and agree with the discharge instructions and disposition. Disposition/Present on Arrival - Present on Arrival Any Indicators Present on Arrival: No History of DVT/PE: No History of Uncontrolled Diabetes: No Urinary Catheter: No History Surgical Site Infection Following: None - Disposition Have Diagnosis and Disposition been Completed?: Yes Diagnosis: Dehydration Disposition: HOSPITALIZED Disposition Time: 00:07 Patient Plan: Observation Patient Problems: Current Active Problems Problem Status Onset Dehydration Acute Condition: FAIR
[2017-04-05 23:41] LABS: INR 1.05 (0.93-1.08); PARTIAL THROMBOPLASTIN TIME 25.9 Seconds (23.7-30.8)
[2017-04-05 23:45] LABS: BASO # 0.02 K/mm3 (0.0-2.0); BASO % 0.2 % (0.0-3.0); EOS # 0.2 (0.0-0.7); EOS % 2.5 % (1.5-5.0); GRAN # 6.64 (1.4-6.5); GRAN % 72.8 % (50.0-68.0); HEMATOCRIT 33.6 % (42.0-52.0); LYMPH # 1.3 (1.2-3.4); LYMPH % 14.1 % (22.0-35.0); MEAN CELL VOLUME 86.8 fl (80.0-105.0); MEAN CORPUSCULAR HEMOGLOBIN 28.9 pg (25.0-35.0); MEAN CORPUSCULAR HGB CONC 33.3 g/dl (31.0-37.0); MEAN PLATELET VOLUME 9.7 fl (7.0-11.0); MONO % 10.4 % (1.0-6.0); RED CELL DISTRIBUTION WIDTH 15.3 % (11.5-14.5); WHITE BLOOD COUNT 9.1 10^3/ul (4.5-11.0)
[2017-04-05 23:46] LABS: ALB/GLOB RATIO 1.4 (1.1-1.8); ALKALINE PHOSPHATASE 84 U/L (38-133); ALT/SGPT 23 U/L (7-56); AST/SGOT 18 U/L (15-59); BILIRUBIN,TOTAL 0.3 mg/dL (0.2-1.3); BLOOD UREA NITROGEN 29 mg/dL (7-21); CALCIUM 8.7 mg/dL (8.4-10.5); CARBON DIOXIDE 24 mmol/L (21-33); CHLORIDE 105 mmol/L (98-107); GFR AFRICAN-AMERICAN > 60; GLUCOSE,RANDOM 118 mg/dL (70-110); MAGNESIUM 1.9 mg/dL (1.7-2.2); PHOSPHOROUS 3.8 mg/dL (2.5-4.5); POTASSIUM 4.2 mmol/L (3.6-5.0); SODIUM 140 mmol/L (132-148); TOTAL PROTEIN 6.9 g/dL (5.8-8.3)
[2017-04-05 23:59] LABS: TROPONIN I < 0.01 ng/mL
[2017-04-06] MEDS ORDERED: Sodium Chloride 0.9% 1,000 ML IV STA (00:11)
[2017-04-06] MEDS: Sodium Chloride 0.9% 1,000 ML IV SCH ×2 (01:22→10:36)
[2017-04-06 05:21] LABS: URINE BILIRUBIN NEGATIVE (NEGATIVE); URINE BLOOD TRACE-LYSED (NEGATIVE); URINE GLUCOSE (UA) NEGATIVE (NEGATIVE); URINE KETONE NEGATIVE (NEGATIVE); URINE LEUKOCYTE ESTERASE NEGATIVE Leu/uL (NEGATIVE); URINE PROTEIN NEGATIVE mg/dL (<30 mg/dL); URINE UROBILINOGEN 0.2 E.U./dL (<1 E.U./dL)
[2017-04-06 05:24] LABS: URINE COLOR YELLOW (YELLOW)
[2017-04-06 05:25] LABS: URINE APPEARANCE CLEAR (CLEAR)
[2017-04-06 05:39] LABS: URINE EPITHELIAL CELLS 0 - 2 /hpf (0-5); URINE RBC 0 - 2 /hpf (0-2); URINE WBC 0 - 2 /hpf (0-6)
[2017-04-06 06:41] VITALS: RESP 20
--- NOTE | 2017-04-06 08:08 | RAD ---
HISTORY: near syncope COMPARISON: 02/18/2017 FINDINGS: LUNGS: No active pulmonary disease. PLEURA: No significant pleural effusion identified, no pneumothorax apparent. CARDIOVASCULAR: Normal. OSSEOUS STRUCTURES: No significant abnormalities. VISUALIZED UPPER ABDOMEN: Normal. OTHER FINDINGS: None. IMPRESSION: No active disease.
[2017-04-06 08:38] VITALS: BP 160/50; TEMP 97.8
[2017-04-06 11:25] VITALS: PULSE 61
--- NOTE | 2017-04-06 15:29 | CARD ---
APPROVED REPORT EKG Measurement Heart [id number] <Conclusion> Sinus bradycardia Otherwise normal ECG
--- NOTE | 2017-04-07 07:10 | HP ---
CHIEF COMPLAINT AND HISTORY OF PRESENT ILLNESS: This is a 76-year-old male who is coming in to the hospital with a history of coronary artery disease, COPD, Parkinson. Patient says he was dizzy. He had low blood pressure. The patient was given IV hydration and had improvement of symptoms. He had no loss of consciousness. He has been eating okay. He has no complaints of any chest pain, shortness of breath, no nausea, no vomiting, fever, headache, or chills. This morning he is alert and awake. He had no other complaints. ALLERGIES: HE HAS NO KNOWN DRUG ALLERGIES. HOME MEDICATIONS: Xyzal, simvastatin, losartan, Percocet, fluticasone. PAST MEDICAL HISTORY: Coronary artery disease, hypertension. SOCIAL HISTORY: No smoking or drinking. FAMILY HISTORY: Noncontributory. PHYSICAL EXAMINATION: VITAL SIGNS: Temperature of 98.7, pulse 62, blood pressure 122/51, respirations 20, O2 saturation 97%. GENERAL: The patient lying in bed, uncomfortable, and in no acute distress. HEENT: Atraumatic and normocephalic. Anicteric sclerae. Moist mucosa. [place] conjunctivae. No oral lesions. NECK: No JVD, anterior and posterior adenopathy, thyromegaly, or bruits. CARDIOVASCULAR: S1 and S2 regular. No murmur, rubs, or gallop. LUNGS: Clear to auscultation bilaterally. No wheezes, rales, or rhonchi. ABDOMEN: Bowel sounds are positive. Soft, nontender and nondistended. No hepatosplenomegaly. No rebound and no guarding. EXTREMITIES: No cyanosis, clubbing, or edema. NEUROLOGIC: No facial asymmetry. Tongue is midline. No uvula deviation. Power is 5/5 upper extremity and lower extremity. Sensation intact in upper extremity and lower extremity. PSYCHIATRIC: She is awake, alert and oriented x3. No anxiety or depression. She has normal affect. GENITOURINARY: No CVA tenderness. VASCULAR: 2+ pulses in the carotid pulses and pedal pulses. SKIN: No erythema or nodules. SPINE: Shows normal curvature. LABORATORY DATA: Reviewed. White count of 9.1, hemoglobin 11.2. INR is 1.05. Chemistry shows creatinine of 1.1, troponin 0.01. His urine shows glucose is negative, ketones are negative, nitrates are negative. His chest x-ray done shows no infiltrates. His EKG done shows sinus bradycardia at 57. Patient is currently comfortable. He is given IV hydration, had improvement of her symptoms. He was able to ambulate. He was going to continue his home medications. He is on for his Parkinson. He is on aspirin. ASSESSMENT: 1. Parkinson. 2. Hypertension. 3. Hypovolemia. 4. Dizziness. 5. Dyslipidemia. PLAN: He is going to follow with Dr. Zavala in 1 to 3 weeks after discharge. He states he lives at [facility]
[2017-04-08] MEDS ORDERED: Pneumococcal 23-Valent Vaccine IM ONE (10:00)
--- NOTE | 2017-05-03 08:11 | DS ---
This is a 76-year-old who had came into the hospital with dizziness. The patient had a low blood pressure. He was given IV fluids. The patient had improvement of the symptoms. He was discharged home. Please see the H and P that was dictated on 04/06/2017 for details. [facility]
== END 2017-04-06 15:06 | disposition home or self-care (01) ==
LOC: ED 22:28 → ERH 04-06 00:13 → 3RSO 04-06 02:16
PROVIDERS: ADMIT Internal Medicine Nephrology; ATTEND Internal Medicine Nephrology
DX: E86.0 Dehydration (principal); E86.1 Hypovolemia; I10 Essential (primary) hypertension; E78.5 Hyperlipidemia, unspecified; G20 Parkinson's disease; I25.10 Atherosclerotic heart disease of native coronary artery without angina pectoris; J44.9 Chronic obstructive pulmonary disease, unspecified
CPT/HCPCS: 71010; 80053; 81001; 82550; 83735; 84100; 84484; 85025; 85610; 85730; 93005; 96360; 99285; G0378; J7040

== ENCOUNTER 2017-07-07 11:27 | Inpatient (IN) | payer MEDICARE, MEDICAID ==
[2017-07-07 11:37] VITALS: BMI 30.7
--- NOTE | 2017-07-07 11:59 | ED PDOC ---
Arrival/HPI - General Chief Complaint: Male Genitourinary Time Seen by Provider: 07/07/17 11:40 Historian: Patient - History of Present Illness Narrative History of Present Illness (Text): 07/07/17 11:58 77 year old male, whose past medical history includes hypertension, CAD s/p PTCA , COPD, and Parkinson's disease, presents to the emergency complaining of blood in urine that began 7-8 hours ago. Patient reports the urine color changed from orange to a noticeable red at 6AM. He states he was recently taken off blood thinners 6-7 months ago. Patient reports back pain but states it appears to be his chronic back pain, and is worse with movement and "on the sides". He reports some "burning with urination" but denies any sensation of incomplete voiding. Denies penile discharge. Denies testicular pain or swelling. PMD: Dr. Martinez Time/Duration: Other (7-8 hours) Symptom Onset: Sudden, Gradual Symptom Course: Unchanged Activities at Onset: Light Context: Home Past Medical History - Provider Review Nursing Documentation Reviewed: Yes - Infectious Disease Hx of Infectious Diseases: None - Tetanus Immunization Tetanus Immunization: Unknown - Cardiac Hx Cardiac Disorders: Yes Hx Hypertension: Yes - Pulmonary Hx Respiratory Disorders: Yes Hx Bronchitis: Yes Hx Chronic Obstructive Pulmonary Disease (COPD): Yes (Borderline COPD) - Neurological Hx Dizziness: Yes Hx Parkinson's Disease: Yes - HEENT Hx HEENT Disorder: No - Renal Hx Renal Disorder: No - Endocrine/Metabolic Hx Endocrine Disorders: No - Hematological/Oncological Hx Blood Disorders: No - Integumentary Hx Dermatological Disorder: No - Musculoskeletal/Rheumatological Hx Musculoskeletal Disorders: Yes (BACK PAIN) Hx Falls: No - Gastrointestinal Hx Gastrointestinal Disorders: No - Genitourinary/Gynecological Hx Genitourinary Disorders: No Hx Hematuria: No Hx Incontinence: No Hx Prostate Problems: No Hx Sexually Transmitted Diseases: No - Psychiatric Hx Emotional Abuse: No Hx Physical Abuse: No Hx Substance Use: No - Past Surgical History Past Surgical History: No Previous - Surgical History Hx Cardiac Catheterization: Yes Hx Coronary Stent: Yes Other/Comment: 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 1970 S/P Left foot surgery. 2008 s/p Hernia repair. 2008 S/P Left leg stent. S/P Cardiac stent. - Anesthesia Hx Anesthesia Reactions: No Hx Malignant Hyperthermia: No - Suicidal Assessment Feels Threatened In Home Enviroment: No Family/Social History - Physician Review Nursing Documentation Reviewed: Yes Family/Social History: No Known Family HX Smoking Status: Former Smoker Hx Alcohol Use: No Hx Substance Use: No Hx Substance Use Treatment: No Allergies/Home Meds Allergies/Adverse Reactions: Allergies No Known Allergies Allergy (Verified 07/07/17 11:36) Home Medications: Home Meds Medication Instructions Recorded Confirmed Levocetirizine Dihydrochloride 5 mg PO DAILY 10/07/16 07/07/17 [Xyzal] Simvastatin 40 mg PO DAILY 10/07/16 07/07/17 Losartan Potassium 100 mg PO QPM 02/01/17 07/07/17 Carbidopa/Levodopa 1 each PO QID 02/05/17 07/07/17 [Carbidopa-Levodopa 25-100 Tab] Ropinirole HCl [Requip] 5 mg PO HS 07/07/17 07/07/17 Review of Systems - Review of Systems Constitutional: absent: Fatigue, Fevers, Other (Chils) Respiratory: absent: SOB Cardiovascular: absent: Chest Pain Gastrointestinal: absent: Abdominal Pain, Diarrhea, Nausea, Vomiting Genitourinary Male: Dysuria, Hematuria. absent: Frequency, Urinary Output Changes Musculoskeletal: Back Pain. absent: Neck Pain Neurological: absent: Headache, Dizziness, Focal Weakness Hemo/Lymphatic: absent: Easy Bleeding Psychiatric: absent: Depression Physical Exam - Physical Exam Narrative Physical Exam (Text): Head: Atraumatic. Normocephalic. Eyes: PERRL. EOMI. Conjunctivae are not pale. ENT: Mucous membranes are moist and intact. Oropharynx is clear and symmetric. Neck: Supple. Full ROM. No JVD. No lymphadenopathy. No meningeal signs. Cardiovascular: Regular rate. Regular rhythm. No murmurs, rubs, or gallops. Distal pulses are 2+ and symmetric. Pulmonary/Chest: No evidence of respiratory distress. Clear to auscultation bilaterally. No wheezing, rales or rhonchi. Abdominal: Soft and non-distended. There is no tenderness. No suprapubic pain. No rebound, guarding, or rigidity. No organomegaly. Good bowel sounds. Genitourinary: urine is grossly bloody, no external lesions or testicular pain reported Back: No CVA tenderness. Paraspinal lower lumbar pain on palpation. Extremities: No edema. No cyanosis. No clubbing. Full range of motion in all extremities. No calf tenderness. Skin: Skin is warm and dry. No petechiae. No purpura. Neurological: Alert, awake. Motor and sensory exam intact. Psychiatric: Good eye contact. Normal interaction, affect, and behavior. Vital Signs Reviewed: Yes Vital Signs Temp Pulse Resp BP Pulse Ox 07/07/17 16:09 66 18 150/60 98 07/07/17 16:07 69 129/61 07/07/17 16:01 66 215/97 H 07/07/17 15:36 228/100 H 07/07/17 15:04 67 203/96 H 07/07/17 14:50 69 18 203/96 H 99 07/07/17 12:40 68 18 162/71 H 97 07/07/17 11:31 97.7 F 71 18 164/77 H 97 Temperature: Afebrile Blood Pressure: Hypertensive Pulse: Regular Respiratory Rate: Normal Appearance: Positive for: Well-Appearing, Non-Toxic, Comfortable Pain Distress: None Mental Status: Positive for: Alert and Oriented X 3 Medical Decision Making ED Course and Treatment: 07/07/17 11:58 Impression: 77 year old male presents complaining of hematuria that began 7-8 hours ago. Denies retention. Denies fever or chills. Plan: -- CT ABD & Pelvis -- EKG -- Urine Culture -- IV Fluids -- Urinalysis -- Reassess and disposition Progress Notes: Patient on initial exam denies any abdominal pain but reports back pain which he feels is chronic and secondary to PRIOR history of "back problems". Urine is grossly bloody on provided specimen. He denies retention. Denies fever or chills. Given gross hematuria and history of back pain, ct ordered to evaluate for kidney stone/intraabdominal pathology. PROCEDURE: CT Abdomen and Pelvis without intravenous contrast Dictator : Rk Hassan MD Report Date : 07/07/2017 13:23:30 IMPRESSION: There is a small soft tissue mass on the right side of the bladder wall measuring 10 mm in diameter. This could represent a bladder tumor and could account for the presentation of hematuria. Further evaluation is suggested CT findings reviewed with patient and family. He denies any pain on re-exam. He is actively urinating on my re-evaluation, urine is still blood tinged, slightly clearer. He states he urinated after CT scan and "it looked like I passed something". Will initiate antibiotics and send urine culture for possible infectious component. Plan to admit for observation given persistent hematuria, and for urology consultation. I reviewed past visit in September, patient states he has not followed up with urologist. 07/07/17 14:[address] Zavala who is aware and agrees with the plan. I discussed case with Dr. Jason Duron, including current symptoms and ct findings, he is aware of consultation. Patient noted to have elevated blood pressure with re-exams. He denies headache or chest pain and is neurologically intact with noted hypertension. He states he did not take his blood pressure medication today. Blood pressure remains elevated despite clonidine administration. IV labetaolol given with improvement in blood pressure. He continues to deny any chest pain or headache or sob. Will admit to remote telemetry as he is hypertensive, but asymptomatic in terms of his hypertension. Dr. Zavala updated with remote telemetry disposition. 07/07/17 18:21 - Lab Interpretations Lab Results: 07/07/17 12:00 07/07/17 12:00 Lab Results 07/07/17 12:00: Urine Color Light brown, Urine Appearance Turbid, Urine pH 6.5, Ur Specific [place] 1.025, Urine Protein >=300 H, Urine Glucose (UA) Negative, Urine Ketones Trace H, Urine Blood Large H, Urine Nitrate Positive H, Urine Bilirubin Small H, Urine Urobilinogen 1.0 H, Ur Leukocyte Esterase Trace H, Urine RBC Tntc, Urine WBC Negative, Urine Bacteria Mod 07/07/17 12:00: Sodium 141, Potassium 4.9, Chloride 104, Carbon Dioxide 26, Anion Gap 16, BUN 20, Creatinine 0.8, Est GFR ( Amer) > 60, Est GFR (Non- Af Amer) > 60, Random Glucose 102, Calcium 9.3, Total Bilirubin 0.6, AST 22, ALT 18, Alkaline Phosphatase 90, Total Protein 7.5, Albumin 4.4, Globulin 3.1, Albumin/Globulin Ratio 1.4 07/07/17 12:00: PT 11.7, INR 1.06, APTT 28.5 07/07/17 12:00: WBC 6.9 D, RBC 4.34, Hgb 12.5 L, Hct 37.9 L, MCV 87.3, MCH 28.8 , MCHC 33.0, RDW 14.9 H, Plt Count 136, MPV 10.0, Gran % 68.1 H, Lymph % (Auto) 18.7 L, [facility] % (Auto) 9.4 H, Eos % (Auto) 3.2, Baso % (Auto) 0.6, Gran # 4.71, Lymph # 1.3, [facility] # 0.7 H, Eos # 0.2, Baso # 0.04 I have reviewed the lab results: Yes - RAD Interpretation Radiology Orders: 07/07/17 12:01 ABD & PELVIS W/O PO OR IV CONT [CT] Stat - Medication Orders Current Medication Orders: Alprazolam (Xanax) 0.25 mg PO BID PRN; Protocol PRN Reason: Anxiety Stop: 07/14/17 15:19 Amlodipine Besylate (Norvasc) 10 mg PO DAILY [facility] Last Admin: 07/07/17 16:15 Dose: Not Given Non-Admin Reason: Agitation Atorvastatin Calcium (Lipitor) 20 mg PO DIN [facility] Last Admin: 07/07/17 17:27 Dose: 20 mg Carbidopa/Levodopa (Sinemet) 1 tab PO QID [facility] Last Admin: 07/07/17 17:27 Dose: 1 tab Clopidogrel Bisulfate (Plavix) 75 mg PO DAILY [facility] Furosemide (Lasix) 40 mg PO DAILY [facility] Last Admin: 07/07/17 17:27 Dose: 40 mg MAR Blood Pressure Document 07/07/17 17:27 GM (Rec: 07/07/17 17:27 GM [id number]) Blood Pressure Blood Pressure (100/60-150/90) 198/87 Sodium Chloride (Sodium Chloride 0.9%) 1,000 mls @ 100 mls/hr IV .Q10H [facility] Last Admin: 07/07/17 12:19 Dose: 100 mls/hr eMAR Start Stop Document 07/07/17 12:19 GMD (Rec: 07/07/17 12:19 GMD [id number]) Intravenous Solution Start Date 07/07/17 Start Time 12:19 Ceftriaxone Sodium (Rocephin 1 Gram Ivpb) 1 gm in 100 mls @ 100 mls/hr IVPB DAILY [facility] PRN Reason: Protocol Losartan Potassium (Cozaar) 100 mg PO QPM [facility] Last Admin: 07/07/17 17:27 Dose: 100 mg Non-Formulary Medication (Ropinirole Hcl [Requip]) 5 mg PO HS [facility] Discontinued Medications Amlodipine Besylate (Norvasc) 10 mg PO DAILY [facility] Clonidine HCl (Catapres) 0.1 mg PO ONCE STA Stop: 07/07/17 14:58 Last Admin: 07/07/17 15:04 Dose: 0.1 mg MAR Pulse and Blood Pressure Document 07/07/17 15:04 GMD (Rec: 07/07/17 15:04 GMD [id number]) Pulse Pulse Rate (60-90) 67 Blood Pressure Blood Pressure (100/60-150/90) 203/96 Ceftriaxone Sodium (Rocephin 1 Gram Ivpb) 1 gm in 100 mls @ 200 mls/hr IVPB ONCE STA PRN Reason: Protocol Stop: 07/07/17 14:17 Last Admin: 07/07/17 14:19 Dose: 200 mls/hr eMAR Start Stop Document 07/07/17 14:19 GMD (Rec: 07/07/17 14:19 D [id number]) Intravenous Solution Start Date 07/07/17 Start Time 14:19 End Date 07/07/17 End time 14:49 Total Infusion Time 30 Ceftriaxone Sodium (Rocephin 1 Gram Ivpb) 100 mls @ 100 mls/hr IVPB DAILY [facility] PRN Reason: Protocol Labetalol HCl (Trandate) 20 mg IVP ONCE ONE Stop: 07/07/17 15:59 Last Admin: 07/07/17 16:01 Dose: 20 mg IVP Administration Document 07/07/17 16:01 GMD (Rec: 07/07/17 16:01 [id number]) Charges for Administration # of IVP Administrations 1 MAR Pulse and Blood Pressure Document 07/07/17 16:01 GMD (Rec: 07/07/17 16:01 [id number]) Pulse Pulse Rate (60-90) 66 Blood Pressure Blood Pressure (100/60-150/90) 215/97 Non-Formulary Medication (Simvastatin [Simvastatin]) 40 mg PO DAILY [facility] - Scribe Statement The provider has reviewed the documentation as recorded by the Azael Vasquez Provider Scribe Attestation: All medical record entries made by the Jaclynibe were at my direction and personally dictated by me. I have reviewed the chart and agree that the record accurately reflects my personal performance of the history, physical exam, medical decision making, and the department course for this patient. I have also personally directed, reviewed, and agree with the discharge instructions and disposition. Disposition/Present on Arrival - Present on Arrival Any Indicators Present on Arrival: No History of DVT/PE: No History of Uncontrolled Diabetes: No Urinary Catheter: No History of Decub. Ulcer: No History Surgical Site Infection Following: None - Disposition Have Diagnosis and Disposition been Completed?: Yes Diagnosis: Hematuria, Bladder mass, Labile hypertension Disposition: HOSPITALIZED Disposition Time: 13:47 Patient Plan: Admission, Observation Patient Problems: Current Active Problems Problem Status Onset Bladder mass Acute Hematuria Acute Condition: FAIR
[2017-07-07] MEDS: Sodium Chloride 0.9% 1,000 ML IV SCH (12:19)
[2017-07-07 12:31] LABS: BASO # 0.04 K/mm3 (0.0-2.0); BASO % 0.6 % (0.0-3.0); EOS # 0.2 (0.0-0.7); EOS % 3.2 % (1.5-5.0); GRAN # 4.71 (1.4-6.5); GRAN % 68.1 % (50.0-68.0); HEMATOCRIT 37.9 % (42.0-52.0); LYMPH # 1.3 (1.2-3.4); LYMPH % 18.7 % (22.0-35.0); MEAN CELL VOLUME 87.3 fl (80.0-105.0); MEAN CORPUSCULAR HEMOGLOBIN 28.8 pg (25.0-35.0); MONO # 0.7 (0.1-0.6); MONO % 9.4 % (1.0-6.0); RED CELL DISTRIBUTION WIDTH 14.9 % (11.5-14.5); WHITE BLOOD COUNT 6.9 10^3/ul (4.5-11.0)
[2017-07-07 12:33] LABS: PH,URINE 6.5 (4.7-8.0); URINE APPEARANCE TURBID (CLEAR); URINE BILIRUBIN SMALL (NEGATIVE); URINE BLOOD LARGE (NEGATIVE); URINE COLOR LIGHT BROWN (YELLOW); URINE GLUCOSE (UA) NEGATIVE (NEGATIVE); URINE KETONE TRACE mg/dL (NEGATIVE); URINE LEUKOCYTE ESTERASE TRACE Leu/uL (NEGATIVE); URINE PROTEIN >=300 mg/dL (<30 mg/dL)
[2017-07-07 12:40] LABS: ALB/GLOB RATIO 1.4 (1.1-1.8); ALKALINE PHOSPHATASE 90 U/L (38-126); ALT/SGPT 18 U/L (7-56); AST/SGOT 22 U/L (17-59); BILIRUBIN,TOTAL 0.6 mg/dL (0.2-1.3); BLOOD UREA NITROGEN 20 mg/dL (7-21); CALCIUM 9.3 mg/dL (8.4-10.5); CARBON DIOXIDE 26 mmol/L (21-33); CHLORIDE 104 mmol/L (98-107); GFR AFRICAN-AMERICAN > 60; GLUCOSE,RANDOM 102 mg/dL (70-110); POTASSIUM 4.9 mmol/L (3.6-5.0); SODIUM 141 mmol/L (132-148); TOTAL PROTEIN 7.5 g/dL (5.8-8.3); URINE RBC TNTC /hpf (0-2); URINE WBC NEGATIVE /hpf (0-6)
[2017-07-07 12:41] LABS: URINE BACTERIA MOD (NEG)
[2017-07-07 12:43] LABS: INR 1.06 (0.93-1.08)
[2017-07-07 12:50] LABS: PARTIAL THROMBOPLASTIN TIME 28.5 Seconds (25.1-36.5)
--- NOTE | 2017-07-07 13:25 | CT ---
PROCEDURE: CT Abdomen and Pelvis without intravenous contrast HISTORY: back pain, hematuria COMPARISON: None. TECHNIQUE: Without contrast. Contrast Dose: Radiation dose: Total exam DLP = 1050 mGy-cm. This CT exam was performed using one or more of the following dose reduction techniques: Automated exposure control, adjustment of the mA and/or kV according to patient size, and/or use of iterative reconstruction technique. FINDINGS: LOWER THORAX: Unremarkable. LIVER: Unremarkable. No gross lesion or ductal dilatation. GALLBLADDER AND BILE DUCTS: There is a 16 mm gallstone. No inflammatory changes PANCREAS: Unremarkable. No gross lesion or ductal dilatation. SPLEEN: Unremarkable. ADRENALS: Unremarkable. No mass. KIDNEYS AND URETERS: Unremarkable. No hydronephrosis. No solid mass. VASCULATURE: Unremarkable. No aortic aneurysm. BOWEL: Unremarkable. No obstruction. No gross mural thickening. APPENDIX: Unremarkable. Normal appendix. PERITONEUM: Unremarkable. No free fluid. No free air. LYMPH NODES: Unremarkable. No enlarged lymph nodes. BLADDER: There is a small soft tissue mass on the right side of the bladder wall measuring 10 mm in diameter. This is seen on image 152 series 2. This could represent a bladder tumor and could account for the presentation of hematuria. Further evaluation is suggested REPRODUCTIVE: Unremarkable. BONES: No acute fracture. OTHER FINDINGS: None. IMPRESSION: There is a small soft tissue mass on the right side of the bladder wall measuring 10 mm in diameter. This could represent a bladder tumor and could account for the presentation of hematuria. Further evaluation is suggested
[2017-07-07] MEDS ORDERED: cefTRIAXone 1 gm 1 GM/100 ML BAG IVPB STA (13:48)
[2017-07-07] MEDS ORDERED: cefTRIAXone 1 gm 100 ML IVPB SCH (15:30)
[2017-07-07] MEDS ORDERED: Labetalol 5 mg/ml Inj 20ML IVP ONE (15:58)
--- NOTE | 2017-07-07 18:40 | HP ---
HISTORY OF PRESENT ILLNESS: The patient is a 77-year-old came to emergency room because of blood in the urine. Denies any nausea or vomiting. No fever or chills. This started a couple of hours ago. Initially, his urine was discolored and then when he woke up this morning to go to the bathroom around 6:00, he noticed blood in the urine. He complained of back pain that seems to be chronic, but little worse than before. PAST MEDICAL HISTORY: Significant for; 1. Hypertension. 2. Coronary artery disease, status post angioplasty. 3. History of COPD. 4. Parkinson's disease. ALLERGIES: HE IS NOT ALLERGIC TO ANY MEDICATION. MEDICATION AT HOME: He is on simvastatin, losartan, Percocet and Advair. SOCIAL HISTORY: He is . Lives with his . History of smoking in the remote past. REVIEW OF SYSTEMS: Significant for back pain and blood in the urine. PHYSICAL EXAMINATION: GENERAL: He is awake, alert, oriented, communicative and ambulatory. VITAL SIGNS: He is afebrile, pulse 67, respirations 18 and blood pressure 164/77. LUNGS: Bilateral good airflow. No rhonchi or crackle. HEART: S1 and S2 audible. ABDOMEN: Soft and nontender. No rebound. No guarding. NEUROLOGIC: The patient is awake, alert, oriented and ambulatory. LABORATORY EXAM: His urinalysis shows red blood. WBC 6.9, hemoglobin 12.5, hematocrit 37.9 and platelets of 136. PT 11.7, INR 1.06. Chemistry; sodium 141,potassium 4.9, chloride 104, CO2 26, BUN 20, creatinine 0.8, blood sugar of 112. LFTs are within normal limits. Urine has large blood with nitrites and trace leukocytes. He had CT scan of the abdomen and pelvis done that shows soft tissue mass on the right side of the bladder wall measuring 10 mm in diameter. The could represent a bladder tumor. Could account for presentation of hematuria. ASSESSMENT: 1. Hematuria. 2. Uncontrolled hypertension. 3. Hyperlipidemia. 4. History of Parkinson's disease. 5. Coronary artery disease, status post angioplasty in the remote past. 6. Status post cardiac catheterization in February 2017. He has nonobstructive coronary artery disease and preserved left ventricular function. PLAN: We will admit the patient. Start him on losartan and Lasix. We will give him one dose of Norvasc. Consult Dr. Duron. Empirically start him on Rocephin. Blood cultures and urine cultures are sent. Jewel Zavala MD
[2017-07-07] MEDS: ROPINIROLE HCL 5 MG PO SCH (21:31)
[2017-07-07] MEDS ORDERED: ROPINIROLE HCL 5 MG PO SCH (22:00)
[2017-07-07] MEDS ORDERED: Pneumococcal 23-Valent Vaccine IM ONE (23:06)
[2017-07-07] MEDS ORDERED: Influenza Vaccine 60 mcg/0.5 mL SYR (4YR UP) IM ONE (23:06)
[2017-07-08] MEDS: Sodium Chloride 0.9% 1,000 ML IV SCH ×2 (03:00→16:03)
[2017-07-08] MEDS ORDERED: Oxycodone/Acetaminophen 5/325 mg Tab PO STA (06:25)
[2017-07-08 07:05] LABS: BASO # 0.03 K/mm3 (0.0-2.0); BASO % 0.5 % (0.0-3.0); EOS # 0.2 (0.0-0.7); GRAN # 4.09 (1.4-6.5); GRAN % 72.5 % (50.0-68.0); LYMPH # 0.9 (1.2-3.4); LYMPH % 15.2 % (22.0-35.0); MEAN CELL VOLUME 86.8 fl (80.0-105.0); MEAN CORPUSCULAR HEMOGLOBIN 27.8 pg (25.0-35.0); MEAN PLATELET VOLUME 9.4 fl (7.0-11.0); MONO # 0.5 (0.1-0.6); MONO % 8.8 % (1.0-6.0); RED CELL DISTRIBUTION WIDTH 14.9 % (11.5-14.5); WHITE BLOOD COUNT 5.7 10^3/ul (4.5-11.0)
[2017-07-08 07:35] LABS: ALB/GLOB RATIO 1.4 (1.1-1.8); ALKALINE PHOSPHATASE 84 U/L (38-126); ALT/SGPT 14 U/L (7-56); AST/SGOT 19 U/L (17-59); BILIRUBIN,TOTAL 0.6 mg/dL (0.2-1.3); BLOOD UREA NITROGEN 15 mg/dL (7-21); CALCIUM 8.7 mg/dL (8.4-10.5); CARBON DIOXIDE 27 mmol/L (21-33); CHLORIDE 106 mmol/L (98-107); GFR AFRICAN-AMERICAN > 60; GLUCOSE,RANDOM 97 mg/dL (70-110); POTASSIUM 3.9 mmol/L (3.6-5.0); SODIUM 140 mmol/L (132-148); TOTAL PROTEIN 6.3 g/dL (5.8-8.3)
--- NOTE | 2017-07-08 08:55 | CARD ---
APPROVED REPORT EKG Measurement Heart [id number] VT 130P34 [id number] <Conclusion> Normal sinus rhythm Normal ECG No change
[2017-07-08] MEDS: cefTRIAXone 1 gm 1 GM/100 ML BAG IVPB SCH (09:33)
--- NOTE | 2017-07-08 12:10 | PN ---
DATE: SUBJECTIVE: The patient is a 77-year-old seen and examined doing well. No nausea and vomiting. No diarrhea. No more hematuria. PHYSICAL EXAMINATION: VITAL SIGNS: The patient is afebrile, pulse 67, respirations 19, and blood pressure 171/85. LUNGS: Bilateral good airflow. No rhonchi or crackle. HEART: S1 and S2 audible. ABDOMEN: Soft and nontender. No rebound. No guarding. NEUROLOGIC: The patient is awake, alert, oriented, communicative. Moves all extremities. LABORATORY DATA: WBC 5.7, hemoglobin 11.2, hematocrit 35, and platelets 114. Chemistry, sodium 140, potassium 3.9, chloride 106, CO2 27, BUN 15, creatinine 0.8, and blood sugar of 97. Urine, nitrites positive and leukocyte trace. ASSESSMENT: 1. Hematuria. 2. Bladder mass. 3. Hypertension. 4. History of chronic obstructive pulmonary disease. 5. History of coronary artery disease, status post recent cardiac catheterization. PLAN: We will continue the patient on Rocephin. Awaiting Dr. Duron's input. We will follow up his urine culture. We will follow up this patient. Jewel Zavala MD
[2017-07-08] MEDS: ROPINIROLE HCL 5 MG PO SCH (22:00)
[2017-07-08] MEDS: Oxycodone/Acetaminophen 5/325 mg Tab PO PRN (23:26)
[2017-07-09] MEDS: Sodium Chloride 0.9% 1,000 ML IV SCH ×2 (03:00→15:47)
--- NOTE | 2017-07-09 11:18 | CON ---
DATE: 07/09/2017 CHIEF COMPLAINT: Hematuria. HISTORY OF PRESENT ILLNESS: This is a 77-year-old man who has had hematuria, was told to see us many months ago. He now came to the ER with gross hematuria. He also had uncontrollable hypertension. A CAT scan was done without contrast which showed, what appears to be, a possible bladder tumor on the right lateral wall. His urine is now clear. The patient said he had a cardiac stent placed more than 4 years ago, although he is currently on Plavix. He has no dysuria, no flank pain. He is a former smoker. His creatinine is normal at 0.8. His coags are normal. PAST MEDICAL HISTORY: Reveals he has history of hypertension, Parkinson's, COPD, and coronary artery disease. ALLERGIES: HE HAS NO ALLERGIES. MEDICATIONS: At home, he is on Advair, losartan, and Zocor. SOCIAL HISTORY: He no longer smokes. FAMILY HISTORY: Noncontributory. REVIEW OF SYMPTOMS: Currently, no symptoms referable to the head, eyes, ears, nose and throat. No cardiac, respiratory, or GI symptoms. No dermatologic, psychiatric, or musculoskeletal symptoms currently. PHYSICAL EXAMINATION: GENERAL: Well and oriented x3. VITAL SIGNS: Shows him to be afebrile, pulse 76, blood pressure is 198/94, and respirations 18. HEENT: Normocephalic. Pupils equal, round, and reactive to light. Extraocular muscles within normal limits. ABDOMEN/PELVIC: No CVA pain. No hepatosplenomegaly, rebound, or guarding. No suprapubic tenderness. GENITALIA: Penis, testicles, cord, epididymis all within normal limits. No peripheral edema. LABORATORY WORK: Shows a white count of 5700, hemoglobin 11.2. His urinalysis was positive for nitrites, negative for wbc's. Urine culture just showed multiple specimens. I reviewed the CAT scan. I am going to order a CT urogram on him. The patient has been on Plavix for at least 3 or 4 days, I cannot do a cystoscopy/TURBT at this time. I told the patient that Plavix as long as he has recent stent and we will check with the nurse, we will check with his highway construction inspector to make sure it is okay to stop this. He will see me in the office upon discharge and I will arrange for him to have a cystoscopy and possible TURBT. Jamal Duron MD
[2017-07-09] MEDS: cefTRIAXone 1 gm 1 GM/100 ML BAG IVPB SCH (11:19)
--- NOTE | 2017-07-09 12:32 | CT ---
PROCEDURE: CT Abdomen and Pelvis with and without intravenous contrast HISTORY: hematuria ,visualize ureters COMPARISON: None. TECHNIQUE: Axial images of the abdomen were obtained in the pre contrast, portal venous and 12 minutes delayed phases of enhancement. Coronal and sagittal reformats were generated. Contrast dose: 150 cc of Omni 350 Radiation dose: Total exam DLP = 2908 mGy-cm. This CT exam was performed using one or more of the following dose reduction techniques: Automated exposure control, adjustment of the mA and/or kV according to patient size, and/or use of iterative reconstruction technique. FINDINGS: LOWER THORAX: Unremarkable. LIVER: Unremarkable. No gross lesion or ductal dilatation. GALLBLADDER AND BILE DUCTS: Multiple gallstones PANCREAS: Unremarkable. No gross lesion or ductal dilatation. SPLEEN: Unremarkable. ADRENALS: Unremarkable. No mass. KIDNEYS AND URETERS: Unremarkable. No hydronephrosis. No solid mass. The renal collecting systems and ureters are normal in appearance with no filling defect. VASCULATURE: Unremarkable. No aortic aneurysm. BOWEL: Unremarkable. No obstruction. No gross mural thickening. APPENDIX: Normal appendix. PERITONEUM: Unremarkable. No free fluid. No free air. LYMPH NODES: Unremarkable. No enlarged lymph nodes. BLADDER: There is a 10 mm soft tissue mass on the right side of the bladder. This is best seen on axial image 147 series 5 and coronal image 37 series 605. REPRODUCTIVE: Unremarkable. BONES: No acute fracture. OTHER FINDINGS: None. IMPRESSION: 10 mm soft tissue mass on the right side of the bladder. The renal collecting system is unremarkable. There are no renal lesions.
[2017-07-09] MEDS ORDERED: cefTRIAXone 1 gm 1 GM/100 ML BAG IVPB SCH (16:28)
[2017-07-09 20:31] VITALS: RESP 20
[2017-07-09] MEDS: ROPINIROLE HCL 5 MG PO SCH (21:20)
[2017-07-09] MEDS: Oxycodone/Acetaminophen 5/325 mg Tab PO PRN (21:23)
[2017-07-10] MEDS: Sodium Chloride 0.9% 1,000 ML IV SCH (00:45)
[2017-07-10 08:25] VITALS: TEMP 97.4; O2SAT 99
--- NOTE | 2017-07-10 08:26 | PN ---
SUBJECTIVE: The patient is 77-year-old, seen and examined, lying in bed, seems to be comfortable, no back pain. He states Percocet did work. No more hematuria. No nausea and vomiting. No fever, no chills. PHYSICAL EXAMINATION: VITAL SIGNS: The patient is afebrile, pulse 76, respirations 18, and blood pressure 174/84. LUNGS: Bilateral fair airflow. No rhonchi or crackle. HEART: S1 and S2 audible. ABDOMEN: Soft and nontender. No rebound. No guarding. NEUROLOGIC: The patient is awake, alert, oriented, communicative. LABORATORY DATA: His urine culture has multiple species. However, we will get repeat urinalysis done. The patient had CT scan of the abdomen and pelvis done that shows 10-mm soft tissue mass on the right side of the bladder. The renal collecting system is unremarkable. There is no renal lesions. ASSESSMENT: 1. Status post hematuria. 2. Right 10-mm soft tissue mass on the right side of the bladder. 3. History of Parkinson disease. 4. Hypertension. 5. Hyperlipidemia. PLAN: Continue the patient on current antibiotics. We will follow up his repeat urinalysis. His blood pressure seems to be running high, I will put for hydralazine 50 mg twice a day, 25 mg twice a day, and we will follow urinalysis, and if remains stable, possible discharge in the a.m. He will follow up with Dr. Duron as an outpatient. Jewel Zavala MD
[2017-07-10 09:56] VITALS: BP 104/55
[2017-07-10 12:34] VITALS: PULSE 82
--- NOTE | 2017-07-11 05:33 | DS ---
HISTORY OF PRESENT ILLNESS: The patient is a 77-year-old who came into emergency room because of hematuria for one-day duration. The patient underwent CT scan that shows 10-mm soft tissue mass from the right side of the bladder. The patient was evaluated by Dr. Duron. The hematuria was self-limited. By next morning, his urine was clear. His urine cultures were sent and was found to be unremarkable. The patient's blood pressure was running high. On admission, blood pressure was up to 215/97. He was started on Norvasc 10 mg daily. Blood pressure improved. Hematuria resolved. Dr. Duron also saw the patient and wanted him to follow up as outpatient. PHYSICAL EXAMINATION: GENERAL: He is awake, alert, oriented, and communicative. VITAL SIGNS: He is afebrile, pulse 66, respirations 18, and blood pressure 104/55. LUNGS: Bilateral good airflow. No rhonchi or crackles. HEART: S1 and S2 audible. ABDOMEN: Soft and nontender. No rebound. No guarding. NEUROLOGIC: The patient is awake, alert, oriented, communicative, and ambulatory. LABORATORY DATA: His urine cultures are negative. ASSESSMENT: 1. Hematuria. 2. Bladder mass. 3. Parkinson's disease. 4. Hypertension. 5. Coronary artery disease. 6. Chronic degenerative disk disease. PLAN: The patient is being discharged home on Norvasc 5 mg daily. We will continue losartan 100 mg daily. We will continue with carbidopa and levodopa. He is going for cataract surgery tomorrow. He will follow up with his PMD next week, so we will monitor his blood pressure. Jewel Zavala MD
== END 2017-07-10 13:43 | disposition home or self-care (01) | DRG 696 ==
LOC: ED 11:27 → ERH 14:15 → OBSVTOIN 16:46 → ERH 16:46 → 3RNO 17:04
PROVIDERS: ADMIT Internal Medicine; ATTEND Internal Medicine
DX: R31.0 Gross hematuria (principal); N32.9 Bladder disorder, unspecified; G20 Parkinson's disease; J44.9 Chronic obstructive pulmonary disease, unspecified; I10 Essential (primary) hypertension; I25.10 Atherosclerotic heart disease of native coronary artery without angina pectoris; M51.9 Unspecified thoracic, thoracolumbar and lumbosacral intervertebral disc disorder; E78.5 Hyperlipidemia, unspecified; Z95.5 Presence of coronary angioplasty implant and graft; Z87.891 Personal history of nicotine dependence

== ENCOUNTER 2017-07-31 08:34 | Day surgery (SDC) | payer MEDICARE, MEDICAID ==
[2017-07-25 07:42] VITALS: BMI 30.8
[2017-07-31] MEDS ORDERED: Lactated Ringer's 1,000 ML IV SCH (11:30)
[2017-07-31] MEDS ORDERED: Morphine 2 mg/ml ISec IVP PRN (11:30)
[2017-07-31] MEDS ORDERED: cefTRIAXone (Rocephin) 1 gm Inj ONE ×2 (11:32→11:34)
[2017-07-31] MEDS ORDERED: cefTRIAXone 1 gm 1 GM/100 ML BAG IVPB SCH (11:45)
[2017-07-31] MEDS ORDERED: Propofol 10 mg/ml Inj (20 ML) ONE (12:01)
[2017-07-31 13:21] VITALS: TEMP 97.9
[2017-07-31 14:00] VITALS: RESP 18; O2SAT 95
[2017-07-31 15:27] VITALS: BP 156/70; PULSE 76
--- NOTE | 2017-07-31 23:44 | OP ---
PROCEDURE DATE: 07/31/2017 PREOPERATIVE DIAGNOSIS: Bladder tumor. POSTOPERATIVE DIAGNOSIS: Bladder tumor. PROCEDURE: Cystoscopy with transurethral resection of the bladder tumor. SURGEON: Jamal Duron MD TYPE OF ANESTHESIA: LMA. DESCRIPTION OF PROCEDURE: After adequate LMA anesthesia was given, the patient was placed in lithotomy, prepped and draped in the usual manner. A 22-Tamazight cystourethroscope was introduced. There was bilobar occlusion of the prostate. The anterior urethra was normal. The bladder showed orifices were normal in appearance, location, and with clear efflux. 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 It encompassing an area of over 5 cm. This area was resected and/or fulgurated. It was very superficial and did not appear invasive. All irrigation fluid placed in the bladder returned. The specimen was removed. The surrounding areas were all fulgurated. Again, the area of resection and/or fulguration exceeded 5 cm. The return was crystal clear. Resectoscope was removed and a 20-Tamazight Coude Nuñez catheter was inserted with [id number] with return being crystal clear. The patient tolerated the procedure well and was taken to the recovery room in good condition. Jamal Duron MD
== END 2017-07-31 15:29 | disposition home or self-care (01) ==
LOC: SDS 08:34
PROVIDERS: ATTEND Urology
DX: C67.2 Malignant neoplasm of lateral wall of bladder (principal); I25.10 Atherosclerotic heart disease of native coronary artery without angina pectoris; I10 Essential (primary) hypertension
CPT/HCPCS: 52235; 88307; J0696 ×2; J2270; J2405; J2704; J3010; J7120 ×2

== ENCOUNTER 2018-09-10 13:47 | Outpatient (CLI) | payer MEDICARE, MEDICAID | END 2018-09-10 13:48 | disposition home or self-care (01) | LOC: CARDIO 13:47 ==

== ENCOUNTER 2018-11-02 16:17 | Emergency (ER) | payer MEDICARE, MEDICAID ==
--- NOTE | 2018-11-02 16:30 | ED PDOC ---
Arrival/HPI - General Time Seen by Provider: 11/02/18 16:19 Historian: Patient, EMS - History of Present Illness Narrative History of Present Illness (Text): 11/02/18 16:24 78 year old M with a pmh of hypertension, PNA, and Alzheimer's presents via EMS s/p Chest Pain for several hours. Patient reports that he was at home eating with his daughters when he suddenly felt chest tightness. Patient describes pain as a knot like sensation in the mid chest. Daughters immediately called EMS. EMS administered 324mg aspirin and 1 spray of sublingual nitroglycerin which yielded relief of the chest pain. Patient denies any fevers, chills, headache, dizziness, shortness of breath, dyspnea on exertion, cough, abdominal pain, nausea, vomiting, diarrhea, back pain, neck pain, or any other complaint. Time/Duration: 4-6 hours Symptom Onset: Sudden Symptom Course: Unchanged Activities at Onset: Eating Context: Home Past Medical History - Provider Review Nursing Documentation Reviewed: Yes - Infectious Disease Hx of Infectious Diseases: None - Tetanus Immunization Tetanus Immunization: Unknown - Cardiac Hx Pacemaker: No - Pulmonary Hx Respiratory Disorders: Yes Hx Bronchitis: Yes Hx Chronic Obstructive Pulmonary Disease (COPD): Yes (Borderline COPD) - Neurological Hx Paralysis: No - HEENT Hx HEENT Disorder: No - Renal Hx Renal Disorder: No - Endocrine/Metabolic Hx Endocrine Disorders: No - Hematological/Oncological Hx Blood Transfusions: No - Integumentary Hx Dermatological Disorder: No - Musculoskeletal/Rheumatological Hx Musculoskeletal Disorders: Yes (BACK PAIN) - Gastrointestinal Hx Gastrointestinal Disorders: No - Genitourinary/Gynecological Hx Genitourinary Disorders: No Hx Hematuria: No Hx Incontinence: No Hx Prostate Problems: No Hx Sexually Transmitted Diseases: No - Psychiatric Hx Emotional Abuse: No Hx Physical Abuse: No Hx Substance Use: No - Past Surgical History Past Surgical History: No Previous - Surgical History Hx Cardiac Catheterization: Yes Hx Coronary Stent: Yes Other/Comment: 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 1969 S/P Left foot surgery. 2008 s/p Hernia repair. 2008 S/P Left leg stent. S/P Cardiac stent. - Anesthesia Hx Anesthesia Reactions: No Hx Malignant Hyperthermia: No - Suicidal Assessment Feels Threatened In Home Enviroment: No Family/Social History - Physician Review Nursing Documentation Reviewed: Yes Family/Social History: Unknown Family HX Smoking Status: Former Smoker Hx Alcohol Use: No Hx Substance Use: No Hx Substance Use Treatment: No Allergies/Home Meds Allergies/Adverse Reactions: Allergies No Known Allergies Allergy (Verified 11/02/18 16:22) Home Medications: Home Meds Medication Instructions Recorded Confirmed Carbidopa/Levodopa 1 tab PO [facility] 02/05/17 11/02/18 [Carbidopa-Levodopa 25-100 Tab] Ropinirole HCl [Requip] 5 mg PO HS 07/07/17 11/02/18 Aspirin [Ecotrin] 81 mg PO DAILY 07/10/17 11/02/18 Carbidopa/Levodopa 50/200 CR 1 tab PO BID 07/25/17 11/02/18 [Sinemet] Fluticasone Nasal [Flonase] 0.05 mg NS DAILY 07/25/17 11/02/18 Metoprolol Tartrate [Lopressor] 25 mg PO DAILY 07/25/17 11/02/18 Oxycodone HCl/Acetaminophen 1 tab PO BID PRN 07/25/17 11/02/18 [Acetaminophen-Oxycodone 325 mg-5 mg] Simvastatin [Zocor] 40 mg PO DAILY 07/25/17 11/02/18 amLODIPine [Norvasc] 5 mg PO QAM 07/25/17 11/02/18 Albuterol HFA [Ventolin HFA 90 1 puff IH QID 11/02/18 11/02/18 mcg/actuation (8 g)] Entacapone [Comtan] 1 tab PO DAILY 11/02/18 11/02/18 Escitalopram [Lexapro] 1 tab PO DAILY 11/02/18 11/02/18 Review of Systems - Physician Review All systems were reviewed & negative as marked: Yes - Review of Systems Constitutional: Normal Eyes: Normal ENT: Normal Respiratory: Normal Cardiovascular: Chest Pain (Mid chest) Gastrointestinal: Normal Musculoskeletal: Normal Skin: Normal Neurological: Normal Endocrine: Normal Hemo/Lymphatic: Normal Psychiatric: Normal Medical Decision Making ED Course and Treatment: 11/02/18 16:32 Impression: 78 year old M presents via EMS s/p Chest Pain for several hours. Differential Diagnosis included but are not limited to: Plan: --EKG --Zithromax -- Reassess and disposition Prior Visits: Notes and results from previous visits were reviewed. Patient was last seen in the emergency department on Progress Notes: - PA / MARKLOGIC DEVELOPER / Resident Statement MD/DO has reviewed & agrees with the documentation as recorded. - Scribe Statement The provider has reviewed the documentation as recorded by the Azael Villarreal All medical record entries made by the Scribe were at my direction and personally dictated by me. I have reviewed the chart and agree that the record accurately reflects my personal performance of the history, physical exam, medical decision making, and the department course for this patient. I have also personally directed, reviewed, and agree with the discharge instructions and disposition. Disposition/Present on Arrival - Present on Arrival History of DVT/PE: No History of Uncontrolled Diabetes: No Urinary Catheter: No History Surgical Site Infection Following: None - Disposition Have Diagnosis and Disposition been Completed?: Yes Diagnosis: Acid reflux Disposition: HOME/ ROUTINE Disposition Time: 18:12 Patient Plan: Discharge Condition: IMPROVED Discharge Instructions (ExitCare): Acid Reflux (Gastroesophageal Reflux Disease), Adult (DC) Print Language: ICELANDIC Additional Instructions: All medical record entries made by the Jaclynibe were at my direction and personally dictated by me. I have reviewed the chart and agree that the record accurately reflects my personal performance of the history, physical exam, medical decision making, and the department course for this patient. I have also personally directed, reviewed, and agree with the discharge instructions and disposition. Please follow up with your PCP in 1 week Prescriptions: Azithromycin [Z-Dominic] 250 mg PO DAILY #6 tab Famotidine [Pepcid] 40 mg PO DAILY #10 tablet Referrals: Sushila Martinez MD [Primary Care Provider] - Follow up with primary Forms: [employer] (N[place]ien)
[2018-11-02 16:32] VITALS: BMI 29.0
[2018-11-02 16:58] VITALS: RESP 18
[2018-11-02 17:15] LABS: ALB/GLOB RATIO 1.3 (1.1-1.8); ALBUMIN 4.7 g/dL (3.0-4.8); AST/SGOT 22 U/L (17-59); BLOOD UREA NITROGEN 17 mg/dL (7-21); CALCIUM 9.3 mg/dL (8.4-10.5); GFR NON-AFRICAN AMERICAN > 60
[2018-11-02 17:26] LABS: ALT/SGPT < 6 U/L (7-56)
[2018-11-02 17:35] LABS: LIPASE 30 U/L (23-300)
[2018-11-02 17:37] LABS: BASO # 0.02 K/mm3 (0.0-2.0); BASO % 0.2 % (0.0-3.0); EOS # 0.1 (0.0-0.7); EOS % 1.1 % (1.5-5.0); HEMOGLOBIN 13.7 g/dL (14.0-18.0); LYMPH # 0.8 (1.2-3.4); LYMPH % 9.5 % (22.0-35.0); MEAN CELL VOLUME 88.1 fl (80.0-105.0); MEAN CORPUSCULAR HEMOGLOBIN 28.7 pg (25.0-35.0); MEAN CORPUSCULAR HGB CONC 32.6 g/dl (31.0-37.0); MEAN PLATELET VOLUME 9.6 fl (7.0-11.0); MONO # 0.5 (0.1-0.6); MONO % 5.5 % (1.0-6.0); RBC 4.77 10^6/uL (3.5-6.1); RED CELL DISTRIBUTION WIDTH 14.7 % (11.5-14.5); WHITE BLOOD COUNT 8.3 10^3/uL (4.5-11.0)
[2018-11-02 17:42] LABS: URINE BILIRUBIN NEGATIVE (NEGATIVE); URINE BLOOD NEGATIVE (NEGATIVE); URINE GLUCOSE (UA) NEGATIVE (NEGATIVE); URINE LEUKOCYTE ESTERASE NEGATIVE Leu/uL (NEGATIVE); URINE PROTEIN NEGATIVE mg/dL (<30 mg/dL); URINE UROBILINOGEN 0.2 E.U./dL (<1 E.U./dL)
[2018-11-02 17:43] LABS: INR 0.99; PARTIAL THROMBOPLASTIN TIME 32.2 Seconds (26.9-38.3)
[2018-11-02 17:45] LABS: URINE APPEARANCE CLEAR (CLEAR); URINE COLOR YELLOW (YELLOW)
[2018-11-02 17:48] LABS: B-TYPE NATRIURETIC PEPTIDE 105 pg/mL (0-450); TROPONIN I < 0.01 ng/mL
--- NOTE | 2018-11-02 17:52 | RAD ---
Date of service: 11/02/2018 HISTORY: cp COMPARISON: 04/05/2017 FINDINGS: LUNGS: The lungs are well inflated and clear. PLEURA: No pleural effusions or pneumothorax. CARDIOVASCULAR: The heart is normal in size. No aortic atherosclerotic calcifications present. OSSEOUS STRUCTURES: Within normal limits for the patient's age. VISUALIZED UPPER ABDOMEN: Normal. OTHER FINDINGS: None. IMPRESSION: No active pulmonary disease.
[2018-11-02 18:26] VITALS: BP 158/84; PULSE 80; TEMP 98.4; O2SAT 98
--- NOTE | 2018-11-03 17:08 | CARD ---
APPROVED REPORT Date of service: 11/02/2018 EKG Measurement Heart [id number] <Conclusion> Normal sinus rhythm Normal ECG
== END 2018-11-02 18:34 | disposition home or self-care (01) ==
LOC: ED 16:17
DX: K21.9 Gastro-esophageal reflux disease without esophagitis (principal); G30.9 Alzheimer's disease, unspecified; I10 Essential (primary) hypertension; Z87.891 Personal history of nicotine dependence